=== PATIENT | female | born 1985 | race Caucasian/White ===

== ENCOUNTER → 2019-04-09 07:59 | Outpatient (CLI) | payer OTHER, SELFPAY ==
--- NOTE | 2019-04-09 08:01 | MR_ITS ---
MR elbow RT wo con CLINICAL INDICATION: Hyperextension injury of the elbow with pain ITS.REASON: right elbow injury ORDERING PHYSICIAN: Doyle Hansen MD PATIENT AGE: 33 years Comparison: 03/16/2019 TECHNIQUE: Routine multiplanar multiecho sequences are performed without contrast. FINDINGS: Study somewhat limited due to mild motion artifact. There is some mild bone marrow edema within the subcortical region of the coronoid process of the ulna. No obvious fracture or dislocation is evident. There is a medium-sized elbow joint effusion with displacement of the anterior and posterior fat pads. The bicipital tendon and triceps tendon appear intact. No gross ligamentous abnormalities are evident however, subtle ligamentous injuries may not be aspirated due to the motion. Subtle fractures also may not be identified due to the motion. On sagittal T1-weighted images there is a faint linear area of decreased signal intensity along the anterior aspect of the radial head. This is of questioned clinical significance. A nondisplaced fracture is a consideration. CT may be of further value if clinically desired. Motion artifact should be less with CT scan. A cutaneous edema is noted on the posterior aspect of the elbow medially IMPRESSION: 1. Medium sized elbow joint effusion. 2. Possible nondisplaced radial head fracture. There is a generous amount of motion artifact which does obscure fine detail. CT may be of further value clinically desired 3. Suspect a mild bone bruise of the coronoid process
== END ==
PROVIDERS: PCP Emergency Medicine; Visit Provider Orthopaedic Surgery
DX: S53.401A Unspecified sprain of right elbow, initial encounter (principal)
CPT/HCPCS: 73221

== ENCOUNTER → 2019-04-14 08:29 | Outpatient (CLI) | payer OTHER, SELFPAY ==
--- NOTE | 2019-04-14 08:30 | CT_ITS ---
CT elbow RT wo con INDICATION: Pain following injury, possible radial head fracture as seen on recent MRI ITS.REASON: evaluate for radial head fracture; stat read ORDERING PHYSICIAN: Doyle Hansen MD PATIENT AGE: 33 years COMPARISON: 04/09/2019 TECHNIQUE: Contrast Used: Oral Contrast: Axial images were obtained. Sagittal and coronal reformatted images are reviewed as well. All CT scans at the facility use one or more dose reduction, viz: automated exposure control, ma/kV adjustment per patient size (including targeted exams where dose is matched to indication, i.e. head), or iterative reconstruction technique. FINDINGS: Thin section axial images are obtained of the elbow. No evidence of fracture. Specifically, no evidence of radial head fracture. Small elbow joint effusion once again noted. IMPRESSION: No acute fracture apparent
== END ==
PROVIDERS: PCP Emergency Medicine; Visit Provider Orthopaedic Surgery
DX: S59.901A Unspecified injury of right elbow, initial encounter (principal)
CPT/HCPCS: 73200

== ENCOUNTER → 2019-06-10 17:59 | Outpatient (CLI) | payer OTHER, SELFPAY ==
[2019-06-10 18:52] LABS: Basophils % 0.5 % (0.1-2.0); Eosinophils # 0.2 K/mm3 (0.0-0.4); Eosinophils % 1.9 % (0.1-12.0); Hematocrit 48.8 % (37.0-47.0); Hemoglobin 15.2 g/dL (12.2-16.2); Lymphocytes # 3.3 K/mm3 (0.7-4.5); Lymphocytes % 38.8 % (10-50); Mean Corpuscular HGB Conc 31.2 g/dL (31.8-35.4); Mean Corpuscular Hemoglobin 29.5 pg (27.0-31.2); Mean Corpuscular Volume 94.8 fl (81-99); Mean Platelet Volume 9.3 fl (7.4-10.4); Monocytes # 0.4 K/mm3 (0.1-1.0); Monocytes % 4.3 % (1.7-9.3); Neutrophils # 4.6 K/mm3 (1.8-7.8); Neutrophils % 54.5 % (37.0-80.0); Platelet Count 214 K/mm3 (142-424); Red Blood Count 5.15 M/mm3 (4.20-5.40); Red Cell Distribution Width 12.8 % (11.5-17.5); White Blood Count 8.4 K/mm3 (4.8-10.8)
[2019-06-10 19:04] LABS: Alanine Aminotransferase 62 U/L (12-78); Albumin Level 4.3 gm/dL (3.4-5.0); Alkaline Phosphatase 100 U/L (46-116); Anion Gap 13.8 mEq/L (5-15); Aspartate Amino Transferase 54 U/L (15-37); Bilirubin,Total 0.3 mg/dL (0.2-1.0); Blood Urea Nitrogen 5 mg/dL (7-18); Calcium 9.1 mg/dL (8.5-10.1); Carbon Dioxide 26 mmol/L (21.0-32.0); Chloride 103 mmol/L (98-107); Chol/HDL Ratio 4.9 (1-3.5); Cholesterol 199 mg/dL (140-200); Creatinine,Serum 0.76 mg/dL (0.55-1.02); Estimated Glomerular Filt Rate 88 ml/min (>60); GFR (African American) 107 ML/MIN (>60); Globulin 4.3 gm/dl (1.3-3.2); Glucose 77 mg/dL (74-106); HDL Cholesterol 41 mg/dL (29-89); LDL Cholesterol 133 mg/dL (0-130); Potassium 3.8 mmoL/L (3.5-5.1); Sodium 139 mmol/L (136-145); T4 (Thyroxine) 8.9 ug/dl (4.7-13.3); Thyroid Stimulating Hormone 31.79 uIU/ml (0.358-3.740); Total Protein,Serum 8.6 gm/dL (6.4-8.2); Triglycerides 127 mg/dL (30-200); VLDL Cholesterol 25 mg/dL (0-40)
[2019-06-12 08:13] LABS: Hep A Ab, IgM Negative (Negative); Hepatitis B Core Antibody IgM Negative (Negative); Hepatitis B Surface Antigen Negative (Negative)
[2019-06-12 12:27] LABS: Hepatitis C Antibody >11.0 s/co ratio (0.0-0.9); Vitamin D 25 Hydroxy 28.2 ng/mL (30.0-100.0)
== END ==
PROVIDERS: Visit Provider Nurse Practitioner Family
DX: M79.89 Other specified soft tissue disorders (principal)
CPT/HCPCS: 80053; 80061; 80074; 82652; 84436; 84443; 85025

== ENCOUNTER → 2019-06-21 14:17 | Outpatient (CLI) | payer OTHER, SELFPAY | PROVIDERS: PCP Emergency Medicine; Visit Provider Urology | DX: R00.2 Palpitations (principal) | CPT/HCPCS: 93225; 93226 ==

== ENCOUNTER → 2019-06-29 09:29 | Outpatient (CLI) | payer OTHER, SELFPAY ==
--- NOTE | 2019-06-29 09:31 | CA_ITS ---
[facility] RADIOLOGICAL CONSULTATION Patient Name : DELIA GATICA X-RAY # : [id number] Physician: ИВАН GRIFFITHS AGE: 33Y : 1985 00:00:00 ( F ) Exam : CA ECHO DOPPLER COMPLETE ACC # : [id number] Study Date : 06/29/2019 09:31:05 Patient Class : O FINAL REPORT CLINICAL DATA: FINDINGS: TRANSCRIBED REPORT EXAM: Comprehensive 2D, Doppler, and color-flow Echocardiogram Rolling Up Machine Operator: Izzy Cooper RT(R) Ht: 5 ft 6 in Wt: 242lbs BSA: 2.17 BP: 138/75 mmHg Indications: Smoking, palpitations, Edema, SOB, hepatitis C, former IV drug user 2D Dimensions Aortic Root 2.90 cm F: 2.7 - 3.3 Left Atrium 3.50 cm F: 2.7 - 3.8 LVOT 2.00 cm (M/F) 1.5-2.5 M-Mode Dimensions RVDd 2.53 cm (0.9-2.6) LVDd 5.25 cm (3.5-5.7) LVDs 3.94 cm (3.5-5.7) IVSd 1.03 cm (0.6-1.1) PWd 0.78 cm (0.6-1.1) EF (Teich) 49.00% FS 25.00% EDV (Teich) 132.40 mL ESV (Teich) 67.50 mL LV Diastology E/A Ratio 1.47 Mitral Valve MV A Velocity 58.00 (40-130 cm/s) Electronically signed by : IMPRESSION: Dictated by at Transcribed by at
== END ==
PROVIDERS: PCP Emergency Medicine; Visit Provider Internal Medicine
DX: R00.2 Palpitations (principal); R60.9 Edema, unspecified; B19.20 Unspecified viral hepatitis C without hepatic coma
CPT/HCPCS: 93306

== ENCOUNTER → 2019-07-19 15:27 | Outpatient (CLI) | payer OTHER, SELFPAY ==
--- NOTE | 2019-07-19 15:30 | US_ITS ---
PROCEDURE: US THYROID CLINICAL INDICATION: hypothyroid Hypothyroidism COMPARISON: No exams were available for comparison FINDINGS: Right lobe: 4.7 x 2.3 x 2.3 cm. There is heterogeneous echogenicity. There is a 15 x 10 mm solid-appearing nodule in the lower pole posteriorly well-circumscribed with some increased echogenicity and no obvious internal calcifications. This is a T rads level 3 nodule for which six-month follow-up is suggested. Left lobe: 4.9 x 2.1 x 2.4 cm. There is a 17 x 8 mm area of ill-defined decreased echogenicity mainly manifested by coarse calcification with prominent posterior acoustical shadowing measuring approximately 1 cm. This nodule is difficult to evaluate due to the coarse calcification. Isthmus: Unremarkable Additional findings: IMPRESSION: Enlarged thyroid gland with heterogeneous echogenicity and bilateral thyroid nodules. Recommend six-month follow-up Dictated by: Ashutosh Vaughan MD 07/19/2019 16:45 Electronically signed by Ashutosh Vaughan MD in [place] 07/19/2019 16:45
== END ==
PROVIDERS: PCP Emergency Medicine; Visit Provider Otolaryngology
DX: E03.9 Hypothyroidism, unspecified (principal)
CPT/HCPCS: 76536

== ENCOUNTER 2019-08-10 13:40 | Outpatient (RCR) | payer OTHER, SELFPAY | END 2019-08-10 14:15 | disposition home or self-care (01) | LOC: OT 13:40 | PROVIDERS: Visit Provider Orthopaedic Surgery | DX: G56.01 Carpal tunnel syndrome, right upper limb (principal) | CPT/HCPCS: 97763 ==

== ENCOUNTER → 2019-10-13 12:51 | Outpatient (CLI) | payer OTHER, SELFPAY ==
--- NOTE | 2019-10-13 12:51 | US_ITS ---
PROCEDURE: US THYROID CLINICAL INDICATION: hypothyroid COMPARISON: US THYROID from 07/19/2019 FINDINGS: Right lobe: 5.7 x 2.2 x 2 cm. There is diffuse heterogeneous echogenicity. A 1 cm nodule is present in the mid polar region on the right unchanged isoechoic. Left lobe: 5.5 x 2.2 x 2 cm. Diffuse nodular heterogeneous echogenicity. 1 cm heterogeneous nodule with central calcification unchanged in the lower pole. Isthmus: Heterogeneous and enlarged Additional findings: IMPRESSION: Overall no change multinodular goiter. Continued six-month follow-up recommended. Dictated by: Ashutosh Vaughan MD 10/13/2019 16:19 Electronically signed by Ashutosh Vaughan MD in [place] 10/13/2019 16:19
== END ==
PROVIDERS: PCP Emergency Medicine; Visit Provider Otolaryngology
DX: E03.9 Hypothyroidism, unspecified (principal); E04.1 Nontoxic single thyroid nodule
CPT/HCPCS: 76536

== ENCOUNTER → 2020-05-18 15:13 | Outpatient (CLI) | payer OTHER, SELFPAY ==
--- NOTE | 2020-05-18 15:13 | US_ITS ---
PROCEDURE: US THYROID CLINICAL INDICATION: hypothyroid Six-month follow-up the nodular goiter COMPARISON: US US THYROID from 07/19/2019 US US THYROID from 10/13/2019 FINDINGS: The right lobe is 5.5 x 2.2 x 1.9 cm in the left lobe is 5.2 x 2.1 x 2.1 cm. The isthmus is thickened at 6 mm. There remains diffuse heterogeneous echogenicity of the thyroid gland with a multinodular configuration. In the mid polar region on the right there is a 10 x 8 mm hypoechoic nodule unchanged. In the lower pole there is a 12 x 10 mm hypoechoic nodule unchanged. On the left side there is a 6 mm nodule in the mid polar region with some coarse calcification unchanged. In the lower pole on the left there is a 12 mm isodense slightly hypoechoic nodule probably unchanged given difference in scanning technique IMPRESSION: No significant change multinodular goiter. Dictated by: Ashutosh Vaughan MD 05/18/2020 17:53 Ashutosh Vaughan MD in [place] 05/18/2020 17:53
== END ==
PROVIDERS: PCP Emergency Medicine; Visit Provider Otolaryngology
DX: E03.9 Hypothyroidism, unspecified (principal); E04.1 Nontoxic single thyroid nodule
CPT/HCPCS: 76536

== ENCOUNTER 2020-08-22 12:14 | Emergency (ER) | payer OTHER, SELFPAY ==
[2020-08-22 12:29] VITALS: BP 121/76; PULSE 86; RESP 18; TEMP 36.6; O2SAT 98; BMI 37.4
--- NOTE | 2020-08-22 12:36 | HMH.EDUTC ---
[facility] [place] Disposition Clinical Impression: Viral syndrome Sinusitis Qualifiers: Sinusitis location: unspecified location Chronicity: acute Recurrence: non-recurrent Qualified Code(s): J01.90 - Acute sinusitis, unspecified Disposition: Home, Self-Care Condition on Discharge: Good Instructions: DI for Sinusitis, Preventing the Spread of Coronavirus Discharge Instructions Additional Instructions: Drink plenty of fluids. Take tylenol for pain or fever. Return if you begin to have difficulty breathing. Follow up with your regular doctor. GO TO THE ER FOR ANY WORSENING SYMPTOMS Prescriptions: Brompheniramine/Pseudoephed/Dm [Bromfed Dm Cough Syrup] 5 ml PO Q6HP PRN #240 syrup PRN Reason: Cough Transmission Status: Pending to [facility] Azithromycin [Z-Jason 250mg Tab*] 250 mg PO UD DOSE PK #6 tab Transmission Status: Pending to [facility] Referrals: Richard Yeboah MD [Primary Care Provider] - Time of Disposition: 12:51 Medical Decision Making - Medical Records Medical records reviewed: No: I reviewed the patient's medical records. - Nash Inquiry Pt receiving controlled substance: No Vital Signs: 08/22/20 12:29 Temperature 97.9 F Temperature Source Oral Pulse Rate [Radial] 86 Respiratory Rate 18 Blood Pressure [Right Arm] 121/76 Blood Pressure Mean [Right Arm] 91 Blood Pressure Source [Right Arm] Automatic Cuff Blood Pressure Position [Right Arm] Sitting 02 Sat by Pulse Oximetry 98 Oxygen Delivery Method Room Air Orders (Tests/Meds): ORDERS Category Date Time Status Covid-19 Nasal PCR Sendout [facility] Lab 08/22/20 12:26 Received [facility] [place] HPI - General Stated complaint: cough,sinus Time Seen by Provider: 08/22/20 12:36 Mode of Arrival: Ambulatory Source of Information: Patient Limitations: No Limitations Description of Symptoms (Recalled from Triage Doc. by RN): covid test, congestion, cough HEENT Symptoms (Recalled from RN notes): Yes Resp Symptoms (Recalled from RN notes): No Skin Symptoms (Recalled from RN notes): No MS Symptoms (Recalled from RN notes): No Functional Status (Recalled from RN notes): wnl - History of Present Illness Provider Complaint: She has had sinus congestion for the past week. She may have been exposed to covid also. - Related Data Home Medications Medication Instructions Recorded Confirmed buprenorphine 8 mg-naloxone 2 mg 1.5 film BUCCAL DAILY each 03/18/19 05/22/20 sublingual film glecaprevir 100 mg-pibrentasvir 40 tab PO 05/22/20 05/22/20 mg tablet Previous Rx's Medication Instructions Recorded cholecalciferol (vitamin D3) 25 1,000 unit PO DAILY #90 cap 06/16/19 mcg (1,000 unit) capsule ergocalciferol (vitamin D2) 1,250 50,000 unit PO QWEEK #14 cap 11/24/19 mcg (50,000 unit) capsule levothyroxine 150 mcg capsule 150 mcg PO DAILY #90 cap 12/10/19 methylprednisolone 4 mg tablets in 4 mg PO PER PKG DIR 6 Days #21 tab 01/17/20 a dose pack tizanidine 4 mg tablet 4 mg PO Q8H #30 tab 01/17/20 Azithromycin [Z-Jason 250mg Tab*] 250 mg PO UD DOSE PK #6 tab 08/22/20 Brompheniramine/Pseudoephed/Dm 5 ml PO Q6HP PRN #240 syrup 08/22/20 [Bromfed Dm Cough Syrup] Allergies Allergy/AdvReac Type Severity Reaction Status Date / Time No Known Allergies Allergy Verified 05/22/20 13:09 - Worker's Comp Is this a Worker's Comp case?: No [facility] History - Hepatitis A Screen Drug use history?: Yes High risk sexual behaviors?: No History of sexually transmitted infection?: No Currently employed?: No Childcare worker?: No Do you have indoor plumbing?: Yes Do you have electricity?: Yes Attestation statement:: This patient has been screened for Hepatitis A risk factors. I have reviewed the patient's past medical history: Yes Medical History: Reports:: Anxiety Other Medical History: Reports: Thyroid Disease, Other Comment: hep c Other Surgeries: Yes: Appendectomy, Cholecystectomy, , H
[2020-08-22 13:00] VITALS: BP 121/74; PULSE 86; RESP 18; TEMP 36.6; O2SAT 98
[2020-08-24 06:24] LABS: Covid-19 Nasal PCR Sendout Lex NOT DETECTED
== END 2020-08-22 12:59 | disposition home or self-care (01) ==
PROVIDERS: Emergency Provider Nurse Practitioner Family; PCP Emergency Medicine
DX: Z20.828 Contact with and (suspected) exposure to other viral communicable diseases (principal); J01.90 Acute sinusitis, unspecified; B34.9 Viral infection, unspecified; F41.9 Anxiety disorder, unspecified; F17.210 Nicotine dependence, cigarettes, uncomplicated
CPT/HCPCS: 99201; U0004

== ENCOUNTER 2020-11-12 12:10 | Emergency (ER) | payer OTHER, SELFPAY ==
[2020-11-12 12:15] VITALS: BP 143/86; PULSE 72; RESP 19; TEMP 36.8; O2SAT 98; BMI 38.7
--- NOTE | 2020-11-12 12:40 | HMH.EDUTC ---
[facility] [place] Clinical Impression: Migraine Qualifiers: Migraine type: unspecified Status migrainosus presence: without status migrainosus Intractability: not intractable Qualified Code(s): G43.909 - Migraine, unspecified, not intractable, without status migrainosus Disposition: Home, Self-Care Condition on Discharge: Good Instructions: Migraine -- Adult, DI for Migraine Additional Instructions: Go Straight home and lay down and sleep off remaining of your Migraine *Return if needed Follow up with Family Doctor for further evaluation and treatment Straight to ER if any life threatening symptoms Referrals: Richard Yeboah MD [Primary Care Provider] - As needed Forms: Work/School Release Time of Disposition: 13:28 Medical Decision Making - Nash Inquiry Pt receiving controlled substance: No Nash was queried for this patient: No Vital Signs: 11/12/20 12:15 Temperature 98.2 F Temperature Source Oral Pulse Rate [Right Brachial] 72 Respiratory Rate 19 Blood Pressure [Right Arm] 143/86 H Blood Pressure Mean [Right Arm] 105 Blood Pressure Source [Right Arm] Automatic Cuff Blood Pressure Position [Right Arm] Sitting 02 Sat by Pulse Oximetry 98 Oxygen Delivery Method Room Air Orders (Tests/Meds): ED MEDICATIONS Discontinued Medications Generic Name Dose Route Start Last Admin Trade Name Freq PRN Reason Stop Dose Admin Diphenhydramine HCl 25 mg 11/12/20 12:48 11/12/20 12:55 Diphenhydramine 25mg Capsule PO 11/12/20 12:49 25 mg ONCE ONE Administration Ketorolac Tromethamine 60 mg 11/12/20 12:43 11/12/20 12:55 Ketorolac 60mg/2ml Vial IM 11/12/20 12:44 60 mg ONCE ONE Administration Methylprednisolone Sodium Succinate 125 mg 11/12/20 12:48 11/12/20 12:55 Methylprednisolone Sod Succ 125mg Vial IM 11/12/20 12:49 125 mg ONCE ONE Administration Metoclopramide HCl 10 mg 11/12/20 12:43 11/12/20 12:55 Metoclopramide 10mg Tablet PO 11/12/20 12:44 10 mg ONCE ONE Administration ORDERS Category Date Time Status Covid-19 Nasal PCR ([facility]) Routine Lab 11/12/20 12:23 Received Medical Decision Narrative: Patient reports tubal, Medication discussed with pharmacy and elected to add SoluMedrol due to recurrent migraine headache Patient states that migraine is almost gone and much better no longer having nausea [facility] [place] - General Stated complaint: headache for 4 days, nausea Time Seen by Provider: 11/12/20 12:40 Mode of Arrival: Ambulatory Source of Information: Patient Limitations: No Limitations Description of Symptoms (Recalled from Triage Doc. by RN): PATIENT C/O HEADACHE, FATIGUE, AND NAUSEA X 4 DAYS HEENT Symptoms (Recalled from RN notes): Yes Resp Symptoms (Recalled from RN notes): No Skin Symptoms (Recalled from RN notes): No MS Symptoms (Recalled from RN notes): No Functional Status (Recalled from RN notes): WNL - History of Present Illness Provider Complaint: Patient states that she has a history of Migraine headaches States that she has had a migraine for about 4 days State that she went to [facility] and they give her a shot for her migraine and it helped but then it came back State that she is also having some body aches and chills and wants to get tested for COVID Denies worse headache of her life States that several times in the past she has had recurrent migraines and had to seek treatment - Related Data Home Medications Medication Instructions Recorded Confirmed buprenorphine 8 mg-naloxone 2 mg 1.5 film BUCCAL DAILY each 03/18/19 11/12/20 sublingual film Allergies Allergy/AdvReac Type Severity Reaction Status Date / Time No Known Allergies Allergy Verified 05/22/20 13:09 - Worker's Comp Is this a Worker's Comp case?: No [facility] History - Hepatitis A Screen Drug use history?: No High risk sexual behaviors?: No History of sexually transmitted infection?: No Currently employed?: No Childcare worker?: No Do you have
[2020-11-12 13:32] VITALS: BP 143/86; PULSE 72; RESP 19; TEMP 36.8; O2SAT 98
== END 2020-11-12 13:37 | disposition home or self-care (01) ==
PROVIDERS: Emergency Provider Nurse Practitioner; PCP Emergency Medicine
DX: Z20.822 Contact with and (suspected) exposure to COVID-19 (principal); G43.909 Migraine, unspecified, not intractable, without status migrainosus; F41.9 Anxiety disorder, unspecified; F17.210 Nicotine dependence, cigarettes, uncomplicated
CPT/HCPCS: 96372; 99202; G0463; U0003

== ENCOUNTER → 2021-01-03 13:16 | Outpatient (CLI) | payer OTHER, SELFPAY | PROVIDERS: PCP Physician Assistant; Referring Provider Physician Assistant; Visit Provider Emergency Medicine | DX: G47.33 Obstructive sleep apnea (adult) (pediatric) (principal); R51.9 Headache, unspecified; R06.83 Snoring | CPT/HCPCS: 95806 ==

== ENCOUNTER → 2021-02-06 13:56 | Outpatient (CLI) | payer OTHER, SELFPAY ==
--- NOTE | 2021-02-06 13:59 | XR_ITS ---
PROCEDURE: XR CERVICAL SPINE 4V CLINICAL INDICATION: neck pain, headaches COMPARISON: No exams were available for comparison FINDINGS: Alignment: Normal alignment. Bony structures: No fracture or dislocation. No lytic or blastic change. Disc spaces: No significant degenerative change. The disc spaces are preserved. Additional findings: The foramina are widely patent. No evidence of cervical rib. Incidental note is made styloid processes on both sides which are not ossified proximally. On the left posterior oblique view there is some soft tissue calcification anterior to the trachea and could be within the thyroid gland or could be vascular. IMPRESSION: Negative cervical spine Incidental findings as described Dictated by: Ashutosh Vaughan MD 02/06/2021 14:24 Ashutosh Vaughan MD in [place] 02/06/2021 14:24
== END ==
PROVIDERS: PCP Physician Assistant; Visit Provider Physician Assistant
DX: R51.9 Headache, unspecified (principal)
CPT/HCPCS: 72050

== ENCOUNTER → 2021-02-07 15:26 | Outpatient (CLI) | payer OTHER, SELFPAY | PROVIDERS: Visit Provider Physician Assistant | DX: Z20.822 Contact with and (suspected) exposure to COVID-19 (principal) | CPT/HCPCS: U0003 ==

== ENCOUNTER → 2021-02-27 19:57 | Outpatient (CLI) | payer OTHER, SELFPAY | PROVIDERS: PCP Physician Assistant; Visit Provider Physician Assistant | DX: G47.33 Obstructive sleep apnea (adult) (pediatric) (principal); R06.83 Snoring; R51.9 Headache, unspecified; E66.9 Obesity, unspecified | CPT/HCPCS: 95810 ==

== ENCOUNTER → 2021-06-28 09:48 | Outpatient (CLI) | payer OTHER, SELFPAY | LOC: RT 09:48 | PROVIDERS: PCP Physician Assistant; Visit Provider Specialist | DX: G47.33 Obstructive sleep apnea (adult) (pediatric) (principal) | CPT/HCPCS: 94060; 94640 ==

== ENCOUNTER 2021-07-24 13:16 | Emergency (ER) | payer OTHER, SELFPAY ==
[2021-07-24 13:43] VITALS: BP 132/87; PULSE 87; RESP 18; TEMP 36.9; O2SAT 95; BMI 41.5
--- NOTE | 2021-07-24 13:48 | HMH.EDUTC ---
[facility] [place] Clinical Impression: Viral syndrome Acute bronchitis Qualifiers: Bronchitis organism: unspecified organism Qualified Code(s): J20.9 - Acute bronchitis, unspecified Disposition: Home, Self-Care Condition on Discharge: Good Instructions: DI for Acute Bronchitis, DI for Viral Syndrome, DI for COVID-19 (Suspected or Confirmed ), Preventing the Spread of Coronavirus Discharge Instructions Additional Instructions: Drink plenty of fluids. Take tylenol or ibuprofen for pain or fever. Take the medications as directed. Follow up with your regular doctor. GO TO THE ER FOR ANY WORSENING SYMPTOMS Quarantine until you know the results of your covid-19 test. If it is positive, the health department should call you and give you further instructions about your length of Quarantine and other things. Notify your school or workplace of your results and follow their instructions regarding return to work/school. Prescriptions: Benzonatate [Benzonatate 100mg cap] 100 mg PO TIDP PRN #30 cap PRN Reason: Cough Transmission Status: Received by [facility] methylPREDNISolone [Medrol] 4 mg PO DIRECTED 6 Days #21 packet Transmission Status: Received by [facility] Azithromycin [Z-Jason 250mg Tab*] 250 mg PO UD DOSE PK #6 tab Transmission Status: Received by [facility] Referrals: Richard Yeboah MD [Primary Care Provider] - Time of Disposition: 14:22 Medical Decision Making - Medical Records Medical records reviewed: No: I reviewed the patient's medical records. - Nash Inquiry Pt receiving controlled substance: No Vital Signs: 07/24/21 13:43 07/24/21 14:30 Temperature 98.4 F 98.4 F Temperature Source Oral Pulse Rate 87 Pulse Rate [Left] 87 Respiratory Rate 18 18 Blood Pressure 132/87 Blood Pressure [Right Arm] 132/87 Blood Pressure Mean [Right Arm] 102 02 Sat by Pulse Oximetry 95 - Lab Data Lab results reviewed: Yes: I reviewed the patient's lab results. [facility] [place] - General Stated complaint: fever/chills, sore throat, congestion, cough Time Seen by Provider: 07/24/21 13:48 Mode of Arrival: Ambulatory Source of Information: Patient Limitations: No Limitations Description of Symptoms (Recalled from Triage Doc. by RN): pt c/o congestion, cough, light headedness, dizziness and loss of taste. ongoing x2 weeks. HEENT Symptoms (Recalled from RN notes): Yes (congestion, loss of taste, light headed and dizziness) Resp Symptoms (Recalled from RN notes): Yes (cough) Skin Symptoms (Recalled from RN notes): No MS Symptoms (Recalled from RN notes): No Functional Status (Recalled from RN notes): na - History of Present Illness Provider Complaint: She states that for the past 5 days approx, she has had a cough, chest congestion, sinus congestion and she has felt bad. - Related Data Home Medications Medication Instructions Recorded Confirmed buprenorphine 8 mg-naloxone 2 mg 2 tab SUBLINGUAL DAILY tab 03/21/21 06/20/21 sublingual tablet levothyroxine 150 mcg capsule 150 mcg PO DAILY 03/21/21 06/20/21 Previous Rx's Medication Instructions Recorded Azithromycin [Z-Jason 250mg Tab*] 250 mg PO UD DOSE PK #6 tab 07/24/21 Benzonatate [Benzonatate 100mg 100 mg PO TIDP PRN #30 cap 07/24/21 cap] methylPREDNISolone [Medrol] 4 mg PO DIRECTED 6 Days #21 07/24/21 packet Allergies Allergy/AdvReac Type Severity Reaction Status Date / Time No Known Allergies Allergy Verified 06/20/21 14:14 - Worker's Comp Is this a Worker's Comp case?: No [facility] History - Hepatitis A Screen Drug use history?: No High risk sexual behaviors?: No History of sexually transmitted infection?: No Currently employed?: No Childcare worker?: No Do you have indoor plumbing?: Yes Do you have electricity?: Yes Attestation statement:: This patient has been screened for Hepatitis A risk factors. I have reviewed the patient's pa
[2021-07-24 14:30] VITALS: BP 132/87; PULSE 87; RESP 18; TEMP 36.9
== END 2021-07-24 14:32 | disposition home or self-care (01) ==
PROVIDERS: Emergency Provider Nurse Practitioner Family; PCP Emergency Medicine
DX: U07.1 COVID-19 (principal); J20.9 Acute bronchitis, unspecified; B34.9 Viral infection, unspecified; F41.8 Other specified anxiety disorders
CPT/HCPCS: 87880; 99202; C9803; G0463; U0003; U0005

== ENCOUNTER 2022-03-18 12:33 | Emergency (ER) | payer OTHER, SELFPAY ==
[2022-03-18 12:51] VITALS: BP 121/82; PULSE 78; RESP 17; TEMP 36.7; O2SAT 98; BMI 33.3
--- NOTE | 2022-03-18 13:04 | HMH.EDUTC ---
[facility] [place] Disposition Clinical Impression: Exposure to COVID-19 virus Disposition: Home, Self-Care Condition on Discharge: Good Instructions: DI for COVID-19 (Suspected or Confirmed ), Preventing the Spread of Coronavirus Discharge Instructions Additional Instructions: *Monitor Temp, Over the counter Motrin or Tylenol as directed/as needed Tylenol every 4 hours and Motrin every 6 hours (as long as your family doctor has told you that you can take it) for fever or pain. and straight to ER if unable to lower temp less than 101.0 after medication given *Warm salt water gargles may help to soothe the throat *Throat Lozenges *Warm fluids like tea with honey may help to soothe the throat *Sleep elevated *Humidifier/Vaporizer Follow up IMMEDIATELY for new or worsening symptoms or no Noticeable improvement over the next 48-72 hours. 911 for difficulty breathing or swallowing You were tested for today for COVID19 your test result should be back in the next 24-48 hours, you may check your results on the [facility] [employer] [facility] Portal for your results Make sure to take your Vitamins Vit. C Vit D and Zinc if you can take them Referrals: Provider,Referral, [Primary Care Provider] - Forms: Work/School Release Time of Disposition: 13:09 Medical Decision Making - Nash Inquiry Pt receiving controlled substance: No Nash was queried for this patient: No Vital Signs: 03/18/22 12:51 Temperature 98.0 F Temperature Source Oral Pulse Rate [Left] 78 Respiratory Rate 17 Blood Pressure [Right Arm] 121/82 Blood Pressure Mean [Right Arm] 95 02 Sat by Pulse Oximetry 98 Orders (Tests/Meds): ORDERS Category Date Time Status Covid-19 Nasal PCR ([facility]) Routine Lab 03/18/22 12:50 Received [facility] [place] HPI - General Stated complaint: covid test Time Seen by Provider: 03/18/22 13:04 Description of Symptoms (Recalled from Triage Doc. by RN): patient comes in for covid test. at home covid test was positive. patient symptoms include fever, cough, runny nose HEENT Symptoms (Recalled from RN notes): Yes Resp Symptoms (Recalled from RN notes): Yes Skin Symptoms (Recalled from RN notes): No MS Symptoms (Recalled from RN notes): No Functional Status (Recalled from RN notes): n/a - History of Present Illness Provider Complaint: Patient states that she was recenlty around her daughter that was positive for COVID States that now she is having nasal congestion, mild cough and low grade fever States that she took an at home test and it was positive so she came in to get tested - Related Data Home Medications Medication Instructions Recorded Confirmed buprenorphine 8 mg-naloxone 2 mg 2 tab SUBLINGUAL DAILY tab 03/21/21 03/18/22 sublingual tablet levothyroxine 150 mcg capsule 150 mcg PO DAILY 03/21/21 03/18/22 Previous Rx's Medication Instructions Recorded phentermine 37.5 mg tablet 37.5 mg PO DAILY #30 tab 09/04/21 Allergies Allergy/AdvReac Type Severity Reaction Status Date / Time No Known Allergies Allergy Verified 03/18/22 12:56 - Worker's Comp Is this a Worker's Comp case?: No [facility] History - Hepatitis A Screen Attestation statement:: This patient has been screened for Hepatitis A risk factors. I have reviewed the patient's past medical history: Yes Medical History: Reports:: Anxiety, Depression, Migraine Other Medical History: Reports: Thyroid Disease, Other Comment: hep c Other Surgeries: Yes: Appendectomy, Cholecystectomy, Colonoscopy, , Hernia Repair, Tubal Ligation, Other Amputation: No Fractures: No Comment: peraneal area - Social History Smoking Status: Current every day smoker Tobacco Type: cigarettes # Packs/Day (cigarettes): 1 #Yrs smoked (if former smoker): 20 Alcohol Intake: never Substance Use Type: former substance user, heroin Occupational Status: unemployed Housing: house Household Members: family - Psychiatric History Pschychiatric History:: Reports:: Anxiety, Depression Fam
[2022-03-18 13:14] VITALS: BP 121/82; PULSE 78; RESP 17; TEMP 36.7
== END 2022-03-18 13:15 | disposition home or self-care (01) ==
PROVIDERS: Emergency Provider Nurse Practitioner
DX: U07.1 COVID-19 (principal)
CPT/HCPCS: 99212; C9803; G0463; U0003; U0005

== ENCOUNTER 2023-06-12 11:36 | Emergency (ER) | payer OTHER, SELFPAY ==
[2023-06-12 11:45] VITALS: BP 156/75; PULSE 79; RESP 20; TEMP 36.8; O2SAT 99; BMI 40.3
--- NOTE | 2023-06-12 11:51 | CA_ITS ---
FINAL REPORT TECHNIQUE: Color Doppler, duplex Doppler and compression sonography of the right lower extremity venous system was performed. CLINICAL HISTORY: REDNESS/SWELLING TO RIGHT CALF FINDINGS: There is no evidence of deep venous thrombosis from the level of the groin to the calf. The veins are patent and compressible. IMPRESSION: No evidence of deep venous thrombosis right lower extremity. Reviewed, Interpreted and Dictated by Nick Mckeon III, MD Transcribed by Neena Manuel Authenticated and [facility]
--- NOTE | 2023-06-12 12:07 | EXP.UTC ---
Discharge Plan Disposition Patient Disposition: Home, Self-Care Condition: Good Prescriptions Prescriptions: New cephalexin 500 mg capsule 500 mg PO QID Qty: 40 0RF No Action levothyroxine 150 mcg capsule 150 mcg PO DAILY buprenorphine-naloxone 8-2 mg tablet, sublingual 2 tab SUBLINGUAL DAILY phentermine [Adipex-P] 37.5 mg tablet 37.5 mg PO DAILY Qty: 30 0RF Rx Instructions: must administer 30 minutes before or 1-2 hours after breakfast Referrals Follow up/Referrals: Richard Yeboah MD [Primary Care Provider] - See instructions Activity Restrictions/Add. Instructions Additional Instructions/Restrictions: *Start antibiotic(s) immediately and be sure to take as ordered for the FULL length of time although you may be feeling better or start to see improvement in the next 24-48 hours *Monitor closely. Outlined redness so that you can monitor easier. Follow up immediately for new or worsening symptoms including but not limited to redness, swelling, streaking from site fever or chills. *Warm compress 15 minutes 3-4 times day *Never squeeze or pop these on your own. Seek immediate medical attention next time this occurs *Monitor Temp. Tylenol every 4 hours as needed and ibuprofen every 6 hours as needed (as long as your primary care doctor has told you that it is ok to take both. For fever, aches, pain. ER if no less that 101 despite Tylenol and ibuprofen ?Follow up with your family doctor/primary care physician in the next 48-72 hours if no improvement Clinical Impressions Clinical Impression: Cellulitis Qualifiers: Site of cellulitis: extremity Site of cellulitis of extremity: lower extremity Laterality: right Qualified Code(s): L03.115 - Cellulitis of right lower limb Stand Alone Forms Stand Alone Forms: Work/School Release Instructions Patient Instructions: Cellulitis, Cephalexin Discharge ED Provider: Jodi Jennings [facility] General Stated complaint: R leg swollen Mode of Arrival: Ambulatory Source of Information: Patient Limitations: No Limitations Time Seen by Provider: 06/12/23 12:07 Description of Symptoms (Recalled from Triage Doc. by RN): PATIENT C/O REDNESS, SWELLING, AND PAIN TO RIGHT CALF AREA THAT STARTED THIS MORNING HEENT Symptoms (Recalled from RN notes): No Resp Symptoms (Recalled from RN notes): No Skin Symptoms (Recalled from RN notes): No MS Symptoms (Recalled from RN notes): Yes Functional Status (Recalled from RN notes): WNL History of Present Illness Provider Complaint: Patient states that she was having some pain and soreness in her right calf area last night and when she woke up this morning she had some redness and swelling in her right calf area States that she hasnt hurt it in anyway that she knows of but it is sore to the touch and hurts when she touches it Related Data Home Medications Medication Instructions Recorded Confirmed buprenorphine 8 mg-naloxone 2 mg 2 tab SUBLINGUAL DAILY addiction 03/21/21 06/12/23 sublingual tablet levothyroxine 150 mcg capsule 150 mcg PO DAILY thyroid 03/21/21 03/18/22 Previous Rx's Medication Instructions Recorded phentermine 37.5 mg tablet 37.5 mg PO DAILY #30 tabs 09/04/21 (Adipex-P) cephalexin 500 mg capsule 500 mg PO QID #40 caps 06/12/23 Allergies Allergy/AdvReac Type Severity Reaction Status Date / Time No Known Allergies Allergy Verified 03/18/22 12:56 Worker's Comp Is this a Worker's Comp case?: No PFSH [facility] Disclaimer: The information contained in this section may have been updated after the patient was seen, as this information can be updated by other users. Medical History (Updated 06/12/23 @ 12:23 by Jodi Jennings APRN) Edema Hepatitis C Hypothyroidism Palpitations Tobacco dependence syndrome Social History Smoking Status: Current every day smoker tobacco type: cigarettes packs per day: 1 second hand exposure: Yes alcohol intake: never substance use ty
[2023-06-12 12:32] VITALS: BP 156/75; PULSE 79; RESP 20; TEMP 36.8; O2SAT 99
== END 2023-06-12 12:38 | disposition home or self-care (01) ==
PROVIDERS: Emergency Provider Nurse Practitioner; PCP Emergency Medicine
DX: L03.115 Cellulitis of right lower limb (principal); F17.210 Nicotine dependence, cigarettes, uncomplicated; E03.9 Hypothyroidism, unspecified
CPT/HCPCS: 93971; 99212; 99214; G0463

== ENCOUNTER 2024-02-18 13:09 | Outpatient (CLI) | payer OTHER, SELFPAY | END 2024-02-18 23:59 | disposition home or self-care (01) | LOC: LAB 13:18 | PROVIDERS: PCP Family Medicine; Visit Provider Nurse Practitioner | DX: E03.9 Hypothyroidism, unspecified (principal) | CPT/HCPCS: 36415; 84443 ==

== ENCOUNTER 2024-02-20 12:48 | Outpatient (CLI) | payer OTHER, SELFPAY ==
[2024-02-20 14:15] LABS: Basophils # 0.1 K/mm3 (0-0.2); Basophils % 1.1 % (0.1-2.0); Eosinophils # 0.2 K/mm3 (0.0-0.4); Eosinophils % 3.1 % (0.1-12.0); Hematocrit 46.2 % (37.0-47.0); Hemoglobin 14.9 g/dL (12.2-16.2); Lymphocytes # 2.6 K/mm3 (0.7-4.5); Lymphocytes % 42.1 % (10-50); Mean Corpuscular HGB Conc 32.1 g/dL (31.8-35.4); Mean Corpuscular Hemoglobin 30.4 pg (27.0-31.2); Mean Corpuscular Volume 94.7 fl (81-99); Mean Platelet Volume 7.9 fl (7.4-10.4); Monocytes # 0.3 K/mm3 (0.1-1.0); Monocytes % 5.2 % (1.7-9.3); Neutrophils % 48.6 % (37.0-80.0); Platelet Count 201 K/mm3 (142-424); Red Blood Count 4.89 M/mm3 (4.20-5.40); Red Cell Distribution Width 13.6 % (11.5-17.5); White Blood Count 6.1 K/mm3 (4.8-10.8)
[2024-02-20 14:17] LABS: Alanine Aminotransferase 20 U/L (12-78); Albumin Level 4.3 g/dl (3.5-5.0); Albumin/Globulin Ratio 1.2 (1.1-1.8); Alkaline Phosphatase 64 U/L (38-126); Anion Gap 13.4 mEq/L (5-15); Aspartate Amino Transferase 32 U/L (14-36); Bilirubin,Total 0.3 mg/dl (0.2-1.3); Blood Urea Nitrogen 11 mg/dl (7-17); Calcium 9.6 mg/dl (8.4-10.2); Carbon Dioxide 29 mmol/L (22.0-30.0); Chloride 101 mmol/L (98-107); Estimated Glomerular Filt Rate 70 ml/min (>60); GFR (African American) 85 ML/MIN (>60); Globulin 3.5 g/dL (1.3-3.2); Glucose 97 mg/dl (74-100); Potassium 4.4 mmoL/L (3.5-5.1); Sodium 139 mmol/L (136-145); Total Protein,Serum 7.8 g/dl (6.3-8.2)
[2024-02-20 14:34] LABS: 25-OH Vitamin D, Total 24.3 ng/mL (30-100)
[2024-02-20 15:07] LABS: Vitamin B12 242 pg/mL (239-931)
[2024-02-20 15:23] LABS: Iron 72 ug/dL (37-170); Total Iron Binding Capacity 348 ug/dL (265-497)
[2024-02-20 15:47] LABS: Ferritin 24.1 ng/ml (6.24-137)
[2024-02-22 07:40] LABS: Triiodothyronine (T3) Total 136 ng/dL (71-180)
[2024-02-22 12:17] LABS: Folate 3.89 ng/mL
== END 2024-02-20 23:59 | disposition home or self-care (01) ==
LOC: LAB 12:49
PROVIDERS: PCP Nurse Practitioner; Visit Provider Nurse Practitioner
DX: E03.9 Hypothyroidism, unspecified (principal); E53.8 Deficiency of other specified B group vitamins; E61.1 Iron deficiency; E55.9 Vitamin D deficiency, unspecified
CPT/HCPCS: 36415; 80053; 82306; 82607; 82728; 82746; 83540; 83550; 84480; 85025

== ENCOUNTER 2024-05-30 15:11 | Emergency (ER) | payer OTHER, SELFPAY ==
[2024-05-30 15:24] VITALS: BP 139/74; PULSE 81; RESP 16; TEMP 36.7; O2SAT 99; BMI 40.3
--- NOTE | 2024-05-30 15:24 | XR_ITS ---
PROCEDURE INFORMATION: Exam: XR Left Foot Exam date and time: 05/30/2024 3:38 PM Age: 38 years old Clinical indication: Injury or trauma; Fall; Blunt trauma; Foot; Left TECHNIQUE: Imaging protocol: Radiologic exam of the left foot. Views: 3 or more views. COMPARISON: CR XR FOOT LT MIN 3V 05/30/2024 3:38 PM FINDINGS: Bones/joints: There is no evidence of acute fracture.There is no evidence of malalignment or dislocation. Soft tissues: Soft tissue swelling over the dorsum of the foot IMPRESSION: There is no evidence of acute fracture.There is no evidence of malalignment or dislocation.
--- NOTE | 2024-05-30 15:24 | XR_ITS ---
PROCEDURE INFORMATION: Exam: XR Left Ankle Exam date and time: 05/30/2024 3:38 PM Age: 38 years old Clinical indication: Injury or trauma; Fall; Blunt trauma; Ankle; Left TECHNIQUE: Imaging protocol: Radiologic exam of the left ankle. Views: 3 or more views. COMPARISON: CR XR ANKLE LT MIN 3V 05/30/2024 3:38 PM FINDINGS: Bones/joints: There is no evidence of acute fracture.There is no evidence of malalignment or dislocation. Soft tissues: Significant soft tissue swelling of the leg and ankle.. IMPRESSION: 1. Significant soft tissue swelling of the leg and ankle.. 2. There is no evidence of acute fracture.There is no evidence of malalignment or dislocation.
--- NOTE | 2024-05-30 15:24 | XR_ITS ---
PROCEDURE INFORMATION: Exam: XR Left Tibia and Fibula Exam date and time: 05/30/2024 3:38 PM Age: 38 years old Clinical indication: Injury or trauma; Fall; Blunt trauma; Lower leg; Left TECHNIQUE: Imaging protocol: Radiologic exam of the left tibia and fibula. Views: 2 views. COMPARISON: CR XR ANKLE LT MIN 3V 05/30/2024 3:38 PM FINDINGS: Bones/joints: There is no evidence of acute fracture.There is no evidence of malalignment or dislocation. 1.5 cm sclerotic density noted in the proximal tibia compatible with bone island (enostosis) in patient without history of neoplastic disease. Nuclear medicine bone scan may be useful for further evaluation if clinically indicated. Soft tissues: Soft tissue swelling of the leg. IMPRESSION: There is no evidence of acute fracture.There is no evidence of malalignment or dislocation.
--- NOTE | 2024-05-30 15:52 | ED_ITS ---
Discharge Plan Disposition Patient Disposition: Home, Self-Care Condition: Good Prescriptions Prescriptions: New ibuprofen [IBU] 800 mg tablet 800 mg PO Q8HP PRN (Reason: Moderate Pain) Qty: 30 0RF No Action levothyroxine 150 mcg capsule 150 mcg PO DAILY buprenorphine-naloxone 8-2 mg tablet, sublingual 2 tab SUBLINGUAL DAILY phentermine [Adipex-P] 37.5 mg tablet 37.5 mg PO DAILY Qty: 30 0RF Rx Instructions: must administer 30 minutes before or 1-2 hours after breakfast cephalexin 500 mg capsule 500 mg PO QID Qty: 40 0RF Referrals Follow up/Referrals: Prunima Bianchi APRN [Primary Care Provider] - See instructions Arabella Nix DPM [Staff Physician] - See instructions Activity Restrictions/Add. Instructions Additional Instructions/Restrictions: Rest the extremity, Elevate the extremity as tolerated while you are resting. Take the medication as directed. Follow up with Dr. Nix (orthopedics/podiatry). I put in a referral but you need to call her office and schedule an appointment. Follow up with your regular doctor. GO TO THE ER FOR ANY WORSENING SYMPTOMS Clinical Impressions Clinical Impression: Left hand tendonitis, Left wrist tendonitis, Left hand pain Stand Alone Forms Stand Alone Forms: Work/School Release Instructions Patient Instructions: DI for Tendinitis Print Language Print Language: Bhutanese Discharge ED Provider: Aram Mendez [facility] General Stated complaint: AO 05/28/24 inj to left leg and ankle Mode of Arrival: Ambulatory Source of Information: Patient Limitations: No Limitations Time Seen by Provider: 05/30/24 15:52 HEENT Symptoms (Recalled from RN notes): No Resp Symptoms (Recalled from RN notes): No Skin Symptoms (Recalled from RN notes): No MS Symptoms (Recalled from RN notes): Yes Functional Status (Recalled from RN notes): wnl History of Present Illness Provider Complaint: States she fell off of her porch on 05/28 and then twisted her left ankle on 05/29. Related Data Home Medications ?Medication ?Instructions ?Recorded ?Confirmed buprenorphine 8 mg-naloxone 2 mg 2 tab SUBLINGUAL DAILY addiction 03/21/21 06/12/23 sublingual tablet levothyroxine 150 mcg capsule 150 mcg PO DAILY thyroid 03/21/21 03/18/22 Previous Rx's ?Medication ?Instructions ?Recorded phentermine 37.5 mg tablet 37.5 mg PO DAILY #30 tabs 09/04/21 (Adipex-P) cephalexin 500 mg capsule 500 mg PO QID #40 caps 06/12/23 ibuprofen 800 mg tablet (IBU) 800 mg PO Q8HP PRN Moderate Pain 05/30/24 #30 tabs Allergies Allergy/AdvReac Type Severity Reaction Status Date / Time No Known Allergies Allergy Verified 03/18/22 12:56 Worker's Comp Is this a Worker's Comp case?: No PFSH [facility] Disclaimer: The information contained in this section may have been updated after the patient was seen, as this information can be updated by other users. Medical History (Updated 05/30/24 @ 15:42 by Aram Mendez APRN) Hypothyroidism Tobacco dependence syndrome Hepatitis C Edema Palpitations Social History Smoking Status: Current every day smoker tobacco type: cigarettes packs per day: 1 second hand exposure: Yes alcohol intake: never substance use type: former substance user and heroin current occupational status: unemployed Travel in the last 8 weeks: None household members: family housing: house ROS Obtained: Yes All systems reviewed & no additional complaints except as documented Constitutional Constitutional: Denies chills and Denies fever(s) Eyes Eyes: Denies eye discharge ENT Ears, Nose, Mouth, and Throat: Denies dizziness, Denies otalgia and Denies sore throat Cardiovascular Cardiovascular: Denies chest pain Respiratory Respiratory: Denies shortness of breath, Denies chest congestion, Denies cough, Denies stridor and Denies wheezing Gastrointestinal Gastrointestingal: Denies nausea or vomiting Musculoskeletal Musculoskeletal: Reports as per HPI Integumentary/Breasts Skin/Breast: Denies redness, Denies rash and Denies wounds Neurologic Neurologic: Denies dizziness and Denies paresthesias Allergic/Immunologic Allergic/Immunologic: Denies wheezing Physical Exam General General appearance: alert and in no apparent distress Head Head exam: atraumatic, normocephalic and normal inspection Eye Eye exam: Present normal appearance, PERRL and EOMI ENT ENT exam: Present normal exam, normal oropharynx, mucous membranes moist, TM's normal bilaterally and normal external ear exam Neck Neck exam: Present normal inspection, full ROM and trachea midline; Absent meningismus or lymphadenopathy Chest Chest inspection: Present normal inspection and symmetric chest wall rise; Absent tenderness Respiratory Respiratory exam: Present normal lung sounds bilaterally; Absent respiratory distress Cardiovascular Cardiovascular exam: Present regular rate and normal rhythm; Absent JVD Abdominal Exam Abdominal exam: Present soft and normal bowel sounds; Absent distention, tenderness or guarding Extremities Exam Extremities exam: Present normal capillary refill; Absent calf tenderness Expanded Lower Extremity Exam Right: Hip/Pelvis exam: Present normal inspection and full ROM; Absent tenderness Upper leg exam: Present normal inspection and full ROM; Absent tenderness Knee exam: Present normal inspection, full ROM and knee extension intact; Absent tenderness, effusion, anterior drawer sign, posterior draw sign, pain with valgus, laxity with valgus, pain with varus or laxity with varus Lower leg exam: Present full ROM, tenderness, swelling and Achilles tendon intact; Absent abrasion, laceration, ecchymosis, deformity, crepitus, dislocation, erythema, palpable cord or Homans' sign Ankle exam: Present tenderness, swelling and ecchymosis; Absent full ROM, abrasion, laceration, deformity, crepitus, dislocation, erythema, tenderness over talofibular lig or anterior draw sign Foot/toe exam: Present tenderness, swelling and ecchymosis; Absent full ROM, abrasion, laceration, deformity, crepitus, dislocation, erythema, amputation, puncture wound, foreign body, calcaneal tenderness, tenderness at base of 5th metatarsal, nail avulsion or subungual hematoma Neurovascular/Tendon exam: Present normal capillary refill, normal 2-point discrimination and normal fine/light touch; Absent pulse deficit, motor deficit, sensory deficit, tendon deficit, extremity cold to touch or pallor Gait: observed and limited by pain Back Exam Back exam: Present normal inspection; Absent tenderness Neurological Exam Neurological exam: Present alert and oriented X3 Psychiatric Psychiatric exam: Present normal affect and normal mood Skin Skin exam: Present warm, dry, intact and normal color Lymphatic Lymphatic Findings: no adenopathy Medical Decision Making Medical Records Medical records reviewed: No I reviewed the patient's medical records. Screening: Per USPSTF and CDC recommendations, given the prevalence of disease in our region, it is our hospital?s policy to screen for HIV and viral Hepatitis for all patients aged 18 and over and those with ongoing risk factors. Nash Inquiry Pt receiving controlled substance: No Vital Signs: 05/30/24 15:24 Temperature 98.0 F Temperature Source Oral Pulse Rate [Radial] 81 Respiratory Rate 16 Blood Pressure [Right Arm] 139/74 Blood Pressure Mean [Right Arm] 95 Blood Pressure Source [Right Arm] Automatic Cuff Blood Pressure Position [Right Arm] Sitting 02 Sat by Pulse Oximetry 99 Oxygen Delivery Method Room Air Orders (Tests/Meds): ORDERS Category Date Time Status Foot XR left minimum 3 views [XR foot LT min 3V] Stat Exams 05/30/24 15:24 Taken XR ankle LT min 3V Stat Exams 05/30/24 15:24 Taken XR tibia fibula LT 2V Stat Exams 05/30/24 15:24 Taken Procedures Risk/Benefits of Procedure(s) Were Explained: Yes Orthopedic Splinting/Casting Injury #1: Side: right Lower Extremity Injury Location: lower leg, ankle and foot Lower Extremity Immobilizer: boot orthosis and applied by nurse/dr callejas Post Cast/Splinting Neuro Status: intact and no change Post Cast/Splinting Vasc Status: intact and no change
[2024-05-30 17:11] VITALS: BP 139/74; PULSE 81; RESP 16; TEMP 36.7; O2SAT 99
== END 2024-05-30 17:15 | disposition home or self-care (01) ==
PROVIDERS: Emergency Provider Nurse Practitioner Family; PCP Nurse Practitioner
DX: M25.572 Pain in left ankle and joints of left foot (principal); M67.874 Other specified disorders of tendon, left ankle and foot; W17.89XA Other fall from one level to another, initial encounter
CPT/HCPCS: 73590; 73610; 73630; 99212; 99214; G0463

== ENCOUNTER 2024-06-16 13:40 | Outpatient (CLI) | payer OTHER, SELFPAY ==
--- NOTE | 2024-06-16 13:43 | XR_ITS ---
FINAL REPORT CLINICAL HISTORY: Left ankle injury COMPARISON: 05/30/2024 FINDINGS: LEFT ANKLE: Three views of the left ankle were obtained. There is no acute fracture or dislocation. The joint spaces and mortise are intact. Soft tissue swelling is noted surrounding the left ankle. IMPRESSION: Diffuse soft tissue swelling without acute bony abnormality identified. Reviewed, Interpreted and Dictated by Nick Mckeon III, MD Transcribed by Cristina Diaz Authenticated and [facility]
== END 2024-06-16 23:59 | disposition home or self-care (01) ==
LOC: RAD 13:41
PROVIDERS: PCP Nurse Practitioner; Visit Provider Physician Assistant
DX: M25.572 Pain in left ankle and joints of left foot (principal); S99.912A Unspecified injury of left ankle, initial encounter
CPT/HCPCS: 73610

== ENCOUNTER 2024-10-04 16:13 | Outpatient (CLI) | payer OTHER, SELFPAY | END 2024-10-04 23:59 | disposition home or self-care (01) | LOC: LAB 16:14 | PROVIDERS: PCP Nurse Practitioner; Visit Provider Nurse Practitioner | DX: Z02.9 Encounter for administrative examinations, unspecified (principal) ==

== ENCOUNTER 2025-03-08 10:57 | Emergency (ER) | payer OTHER, SELFPAY ==
[2025-03-08 11:02] VITALS: BP 152/88; PULSE 82; RESP 19
[2025-03-08 11:05] VITALS: BP 151/88; PULSE 82; RESP 19; TEMP 36.9; O2SAT 97; BMI 41.1
--- NOTE | 2025-03-08 11:05 | CA_ITS ---
FINAL REPORT TECHNIQUE: extremity venous duplex was performed with augmentation and compression. CLINICAL HISTORY: Left leg [id number] FINDINGS: Proper flow is seen throughout the deep venous system. There is no evidence of deep venous thrombosis. IMPRESSION: No evidence of left lower extremity deep venous thrombosis. Reviewed, Interpreted and Dictated by Eliezer Post MD Transcribed by Lissa Bradley Authenticated and [facility]
--- OUTSIDE RECORDS SUMMARY | 2025-03-08 11:06 | XMS_ITS | Data Portability ---
Author Organization [facility] Address [address] [place] [address] Care Team Providers Care Barrel Lathe Operator Name Role Phone LE TIPTON Lithopress Operator Unavailable Assessment Encounter Date Assessment Date Assessment LastModified by Organization Details LastModified Time 04/02/2018 04/02/2018 she has a tank driver [email or web address] Not available 04/02/2018 20:54:37 Plan of Treatment Reminders Order Date Submit Date Provider Last Modified By Organization Details Last Modified Time Details Appointments None recorded. Lab hepatitis C virus RNA, quant, PCR, serum or plasma 2017 018 ROSANGELA [facility], [address], [address], [place], [address], 8 10:16:42 CMP, serum or plasma 2017 018 ROSANGELA [facility], [address], [place] [address], [place], [address], 8 10:16:40 hepatic function panel, serum 2017 018 ROSANGELA [facility], [address], [address], [place], [address], 8 10:16:41 TSH + free T4, serum 2017 018 ROSANGELA [facility], [address], [address], [place], [address], 8 10:16:39 T3, free, serum or plasma 2017 018 ROSANGELA [facility], [address], [address], [place], [address], 8 10:16:43 pap, IG + CT/NG + reflex HPV (16+18) 2017 018 ROSANGELA [facility], [address], [place], [place], [address], 8 15:16:55 Referral substance abuse rehabilita tion referral - faxed [facility], they will call patient with oanh lozoya.Phone # [phone] Not available 8 08:06:27 gastroente rologist referral 2017 018 [email or web address] Edward Javed MD, [address] [place] [address] , [place] [address], [place], [address], 8 11:40:30 Procedures None recorded. Surgeries None recorded. Imaging None recorded. Medication Orders Voltaren Arthritis Pain 1 % topical gel [address] [facility], [address] [place] [address], [id number], 3 16:02:19 prednisone 20 mg tablet [address] [facility], [address] [place] [address], [id number], 3 16:02:22 clindamyci n HCl 300 mg capsule [address] [facility], [address] [place] [address], [id number], 3 16:02:16 ketorolac 60 mg/2 mL intramuscu lar solution 2017 018 [email or web address] Not available 3 15:36:55 prednisone 20 mg tablet 2017 018 [facility] [id number], [address] [facility] , [place], [address], 3 15:37:04 promethazi ne 25 mg/mL injection solution 2017 018 [email or web address] Not available 3 15:37:16 sumatripta n 25 mg tablet 2017 018 [facility] [id number], [address] [facility] , [place], [address], 3 15:44:17 levothyrox ine 25 mcg tablet 2017 018 [facility] [id number], [address] [facility] , [place], [address], 8 16:03:11 triamcinol one acetonide 0.1 % topical cream 2017 018 [email or web address] [facility] [id number], [address] [facility] , [place], [address], 8 15:43:15 Patient TargetsNo targets recorded. Patient Instructions Encounter Date Encounter Id Patient Instructions Last Modified By Organization Details Last Modified Time 01/06/2018 [id number] 1. Potential for scar tissue r/t previous surgeries discussed. Sandra recounts significant MERON with recent appendectomy 6-12 months ago. 2. Consider DMPA vs Mirena for heavy menstrual bleeding in hopes of decreasing pain with menses. 3. Plan family medicine referral to establish care for hx of hypothyroidism and hx of Hep C. Not available 01/06/2018 20:14:51 1. Treatment options for heavy menstrual bleeding and painful cycles discussed including regular dosed NSAIDS, initiating hormonal therapy, inserting a progestin releasing IUD, minor surgery (D&C, endometrial ablation) and major surgery (hysterectomy). Risks, benefits, and alternatives to all therapies discussed. She chooses possible progestin releasing IUD. Pamphlet given for her review. 2. We will call abnormal test results in 7-10 days. Patient is advised that normal test results will be retrievable through [employer] Patient Portal and that they will be notified of the availability of normal results from [facility] by phone call, text or email. Not available 01/06/2018 20:13:45 04/02/2018 [id number] discussed migrai ne SORIANO's in detail. encouraged her to stay well hydrated, drink water and limit caffeine intake (if she is drinking a lot, slowly wean herself off). be sure to get plenty of rest. avoid food/drinks that may aggravate it - like hard cheeses, processed meats, beer and red wine. if SORIANO's recur, keep a SORIANO diary and try to document anything that might be a trigger. Call or RTC or go to ER for any red flag symptoms, such as fever, acute worsening, acute visual changes, weakness or numbness [email or web address] Not available 04/02/2018 15:19:02 Reason for Referral Anglesmith Helper Referral for Viral hepatitis C Hepatitis C Referring Physician: Le Tipton, SENIOR PROJECT LEADER/TEAM LEAD, Encounter Date: 01/06/2018 Substance Abuse Rehabilitati on Referral for History of heroin abuse faxed to [facility], they will call patient with appointment.. Referring Physician: Agustin Heck, Family Medicine, Encounter Date: 01/19/2018 Results Created Date Observation Date Name Description Value Unit Range Abnormal Flag Note LastModifiedBy Organization Detail LastModifiedTime 01/07/20 18 01/08/2018 pap, IG + CT/NG + refle x HPV (16+1 8) HPV, high-risk Negati ve negati ve This high- risk HPV test detec ts thirt een high- risk types (16/1 8/31/ 33/35 /39/4 5/51/ 52/56 /58/5 ) witho ut diffe renti ation . Not Available [facility] ([facility]) [address] [facility], [place], [address], 01/09/2018 15:16:55 01/07/20 18 01/08/2018 pap, IG + CT/NG + refle x HPV (16+1 8) chlamydia, nuc. acid amp Negati ve negati ve Not Available [facility] ([facility]) [address] [place], [address], 01/09/2018 15:16:55 01/07/20 18 01/08/2018 pap, IG + CT/NG + refle x HPV (16+1 8) gonococcus, nuc. acid amp Negati ve negati ve Not Available [facility] ([facility]) [address] [place], [address], 01/09/2018 15:16:55 01/07/20 18 01/09/2018 pap, IG + CT/NG + refle x HPV (16+1 8) diagnosis: Commen t NEGAT COLLIN FOR INTRA EPITH ELIAL LESIO N AND MALIG MAKAYLA . REACT COLLIN CELLU LAR JOYA ES AND/O R REPAI R ARE PRESE NT. Not Available [facility] ([facility]) [address] [facility], [place], [address], 01/09/2018 15:16:55 01/07/20 18 01/09/2018 pap, IG + CT/NG + refle x HPV (16+1 8) specimen adequacy: Commen t Satis facto ry for evalu ation . Endoc ervic al and/o r squam ous metap lasti c cells (endo cervi therese compo nent) are prese nt. Not Available [facility] ([facility]) [address] [facility], [place], [address], 01/09/2018 15:16:55 01/07/20 18 01/09/2018 pap, IG + CT/NG + refle x HPV (16+1 8) clinician provided ICD10: Commen t Z12.4 Z11.5 1 Z11.8 Not Available [facility] ([facility]) [address] [facility], [place], [address], 01/09/2018 15:16:55 01/07/20 18 01/09/2018 pap, IG + CT/NG + refle x HPV (16+1 8) performed by: Sebas reeves, Cytot echno logis t (ASCP ) Not Available [facility] ([facility]) [address] [facility], [place], [address], 01/09/2018 15:16:55 01/07/20 18 01/09/2018 pap, IG + CT/NG + refle x HPV (16+1 8) electronical ly signed by: Sebas Delgado MD, Patho logis t Not Available [facility] ([facility]) [address] [place], [address], 01/09/2018 15:16:55 01/07/20 18 01/09/2018 pap, IG + CT/NG + refle x HPV (16+1 8) . . Not Available [facility] ([facility]) [address] [facility], [place], [address], 01/09/2018 15:16:55 01/07/20 18 01/09/2018 pap, IG + CT/NG + refle x HPV (16+1 8) note: Sebas doran The Pap smear is a scree zina test desig beau to aid in the detec tion of jaylen ligna nt and malig nant condi tions of the uteri ne cervi x. It is not a diagn ostic proce dure and shoul d not be used as the sole means of detec ting cervi therese cance r. Both false -posi tive and false -nega tive repor ts do occur . Not Available [facility] ([facility]) [address] [facility], [place], [address], 01/09/2018 15:16:55 01/07/20 18 01/09/2018 pap, IG + CT/NG + refle x HPV (16+1 8) test methodology: Sebas doran This liqui d based ThinP rep(R ) pap test was scree beau with the use of an image guide d syste m. Not Available [facility] ([facility]) [address] [place], [address], 01/09/2018 15:16:55 01/20/20 18 01/20/2018 TSH + free T4, serum TSH 23.440 uIU/m L 0.450- 4.500 above high normal Not Available [facility] ([facility]) [address] [place], [address], 01/22/2018 10:16:39 01/20/20 18 01/20/2018 TSH + free T4, serum T4,free(dire ct) 0.91 NG/dL 0.82-1 .77 Not Available [facility] ([facility]) [address] [place], [address], 01/22/2018 10:16:39 01/20/20 18 01/20/2018 CMP, serum or plasm a glucose 74 mg/dL 65-99 Speci men recei margarita in conta ct with cells . No visib le hemol ysis prese nt. Howev er GLUC may be decre ased and K incre ased. Clini therese corre latio n indic ated. Not Available [facility] ([facility]) [address] [place], [address], 01/22/2018 10:16:40 01/20/20 18 01/20/2018 CMP, serum or plasm a BUN 10 mg/dL 6-20 Not Available [facility] ([facility]) [address] [place], [address], 01/22/2018 10:16:40 01/20/20 18 01/20/2018 CMP, serum or plasm a creatinine 0.76 mg/dL 0.57-1 .00 Not Available [facility] ([facility]) [address] [place], [address], 01/22/2018 10:16:40 01/20/20 18 01/20/2018 CMP, serum or plasm a eGFR if nonafricn AM 105 mL/mi n/1.7 3 >59 Not Available [facility] ([facility]) [address] [facility], [place], [address], 01/22/2018 10:16:40 01/20/20 18 01/20/2018 CMP, serum or plasm a eGFR if africn AM 121 mL/mi n/1.7 3 >59 Not Available [facility] ([facility]) [address] [facility], [place], [address], 01/22/2018 10:16:40 01/20/20 18 01/20/2018 CMP, serum or plasm a BUN/creatini ne ratio 13 9-23 Not Available [facility] ([facility]) [address] [facility], [place], [address], 01/22/2018 10:16:40 01/20/20 18 01/20/2018 CMP, serum or plasm a sodium 141 mmol/ L 134-14 4 Not Available [facility] ([facility]) [address] [place], [address], 01/22/2018 10:16:40 01/20/20 18 01/20/2018 CMP, serum or plasm a potassium 4.1 mmol/ L 3.5-5. 2 Speci men recei margarita in conta ct with cells . No visib le hemol ysis prese nt. Howev er GLUC may be decre ased and K incre ased. Clini therese corre latio n indic ated. Not Available [facility] ([facility]) [address] [facility], [place], [address], 01/22/2018 10:16:40 01/20/20 18 01/20/2018 CMP, serum or plasm a chloride 104 mmol/ L 96-106 Not Available [facility] ([facility]) [address] [facility] [address], [place], [address], 01/22/2018 10:16:40 01/20/20 18 01/20/2018 CMP, serum or plasm a carbon dioxide, total 17 mmol/ L 18-29 below low normal Not Available [facility] ([facility]) [address] [facility] [place], [address], 01/22/2018 10:16:40 01/20/20 18 01/20/2018 CMP, serum or plasm a calcium 9.5 mg/dL 8.7-10 .2 Not Available [facility] ([facility]) [address] [facility], [address], 01/22/2018 10:16:40 01/20/20 18 01/20/2018 CMP, serum or plasm a protein, total 8.1 g/dL 6.0-8. 5 Not Available [facility] ([facility]) [address] [facility] [place], [address], 01/22/2018 10:16:40 01/20/20 18 01/20/2018 CMP, serum or plasm a albumin 4.3 g/dL 3.5-5. 5 Not Available [facility] ([facility] [address] [facility] [place], [address], 01/22/2018 10:16:40 01/20/20 18 01/20/2018 CMP, serum or plasm a globulin, total 3.8 g/dL 1.5-4. 5 Not Available [facility] ([facility]) [address] [facility] [place], [address], 01/22/2018 10:16:40 01/20/20 18 01/20/2018 CMP, serum or plasm a A/G ratio 1.1 1.2-2. 2 below low normal Not Available [facility] ([facility]) [address] [facility] [place], [address], 01/22/2018 10:16:40 01/20/20 18 01/20/2018 CMP, serum or plasm a bilirubin, total 0.4 mg/dL 0.0-1. 2 Not Available [facility] ([facility]) [address] [facility] [place], [address], 01/22/2018 10:16:40 01/20/20 18 01/20/2018 CMP, serum or plasm a alkaline phosphatase 89 IU/L 39-117 Not Available [facility] ([facility]) [address] [facility] [place], [address], 01/22/2018 10:16:40 01/20/20 18 01/20/2018 CMP, serum or plasm a AST (SGOT) 70 IU/L 0-40 above high normal Not Available [facility] ([facility]) [address] [facility] [place], [address], 01/22/2018 10:16:40 01/20/20 18 01/20/2018 CMP, serum or plasm a ALT (SGPT) 70 IU/L 0-32 above high normal Not Available [facility] ([facility]) [address] [facility] [place], [address], 01/22/2018 10:16:40 01/20/20 18 01/20/2018 hepat ic funct ion panel , serum bilirubin, direct 0.11 mg/dL 0.00-0 .40 Not Available [facility] ([facility]) [address] [facility] [place], [address], 01/22/2018 10:16:41 01/20/20 18 01/19/2018 hepat itis C virus RNA, quant , PCR, serum or plasm a test information: Commen t The quant itati ve range of this assay is 15 IU/mL to 100 katie on IU/mL . Not Available [facility] ([facility]) [address] [facility] [place], [address], 01/22/2018 10:16:42 01/20/20 18 01/19/2018 hepat itis C virus RNA, quant , PCR, serum or plasm a please note: Commen t This test was devel oped and its perfo rmanc e jasson cteri stics deter mined by [facility]. It has not been clear ed or appro margarita by the U.S. Food and Drug Admin istra tion. The FDA has deter mined that such clear ance or appro brett is not neces michael. This test is used for clini therese purpo ses. It shoul d not be regar ded as inves tigat ional or for resea rch. Not Available [facility] ([facility]) [address] [place], [address], 01/22/2018 10:16:42 01/20/20 18 01/20/2018 hepat itis C virus RNA, quant , PCR, serum or plasm a hepatitis C quantitation [id number] IU/mL Not Available [facility] ([facility]) [address] [place], [address], 01/22/2018 10:16:42 01/20/20 18 01/20/2018 hepat itis C virus RNA, quant , PCR, serum or plasm a HCV log10 5.797 log10 _IU/m L Not Available [facility] ([facility]) [address] [place], [address], 01/22/2018 10:16:42 01/20/20 18 01/20/2018 hepat itis C virus RNA, quant , PCR, serum or plasm a HCV genotype Commen t To be perfo rmed on this speci men. Not Available [facility] ([facility]) [address] [place], [address], 01/22/2018 10:16:42 01/20/20 18 01/22/2018 hepat itis C virus RNA, quant , PCR, serum or plasm a hepatitis C genotype 1a Not Available [facility] ([facility]) [address] [place], [address], 01/22/2018 10:16:42 01/20/20 18 01/20/2018 T3, free, serum or plasm a triiodothyro nine,free,se rum 3.6 pg/mL 2.0-4. 4 Not Available [facility] ([facility]) [address] [place], [address], 01/22/2018 10:16:43 Result Notes None recorded. Problems Name Problem SNOMED Code Status Onset Date Resolution Date Notes Provider Name and Address Organization Details Recorded Time Viral hepatitis C 37556483 Active 2017 hx of IV Drug use.20 13 YUSUF Villarreal - [facility] 8 11:11:01 Condyloma acuminatu m of the anogen[place] l [place] 314268171 Completed 201701/01/2018 Candace brown, YUSUF - [facility] 8 11:10:31 Condyloma acuminatu m of the anogenita l region 386752578 Active 2017 YUSUF Villarreal - [facility] 8 11:10:31 Hypothyro idism 72547716 Active 2017 YUSUF Villarreal - [facility] 8 11:11:08 High grade squamous intraepit helial lesion on cervical Papanicol aou smear 276436167471 07 Active 2017 YUSUF Villarreal - [facility] 8 11:11:34 History of loop electrosu rgical excision procedure 148775285656 02 Active 2013 per DWD Le ANDRAE Tipton [address], [place], [address], [place] - [facility] 8 13:16:00 Problem Notes None recorded. Procedures Surgical History Date Name Laterality Status Provider Name and Address Organization Details Recorded Time 01/07/20 18 Date of Last Pap Smear completed Le Tipton APRN [address], [place], [address], [place] - [facility] 01/12/2018 00:02:07 05/17/20 14 LEEP completed Candace Lerner [place] - [facility] 018 11:08:52 05/17/20 14 Dilation and Curettage, sharp completed Le Tipton APRN [address], [place], [address], [place] - [facility] 01/06/2018 13:07:51 02/24/20 14 Hernia Repair completed Candace Lerner YUSUF - [facility] 12/08 10:54:39 02/20/20 14 Colposcopy completed Candace GOLDBERG - [facility] 018 11:02:43 02/10/20 14 Colposcopy completed Candace GOLDBERG - [facility] 018 11:01:37 09/13/19 11 Cholecystectomy, laparoscopic completed Candace GOLDBERG - [facility] 01/01/2018 10:55:45 06/13/20 09 Colposcopy completed Candace GOLDBERG [facility] 018 10:54:15 04/17/20 08 Caesarean Section completed Candace GOLDBERG - [facility] 01/01/2018 10:53:39 04/17/20 08 Tubal Ligation completed Candace GOLDBERG [facility] 10:56:03 Appendectomy completed Le AragonANDRAE grant [address], [place], [address], [facility] - [facility] 01/06/2018 13:36:04 Imaging Results None recorded. Procedure Notes None recorded. Medical Equipment None Reported. Allergies No known drug allergies Medications Name Sig Start Date Stop Date Status Note LastModified by Organization Details LastModified Time Miralax 17 gram oral powder packet take 1 packet (17 gram) mixed with 8 oz. water, juice, soda, coffee or tea by oral route once daily for 30 days 04/09 completed Miralax 17 gram oral powder in packet;R ecorded Status: Recorded on: 05/02/20 09 2:40PM;D iscontin ued Status: Disconti nued on: 04/09/20 10 4:21PM;U ser: [email or web address];E st. Completi on: 06/01/20 09;Indic ation: Constipa tion - (.5640 00);Prin leno: 05/02/20 09 Not Available Not Available Not Available cyclobenz aprine 10 mg tablet 01/06 completed Not Available Not Available Not Available amoxicill in 500 mg capsule 01/06 completed Not Available Not Available Not Available clindamyc in HCl 300 mg capsule Take 1 capsule every 8 hours by oral route for 10 days, for cellulit is. active Not Available Not Available No t Available IBU 800 mg tablet take 1 tablet (800 mg) by oral route 4 times per day with food prn 01/06 completed Not Available Not Available Not Available hydrocodo ne 5 mg-acetam inophen 325 mg tablet 01/06 completed Not Available Not Available Not Available sumatript an 25 mg tablet Take 1 tablet twice a day by oral route as needed. 08/22 completed Not Available Not Available Not Available prednison e 20 mg tablet Take 1 tablet twice a day by oral route for 5 days. active Not Available Not Available No t Available Diflucan 150 mg tablet take 1 tablet (150 mg) by oral route once for 2 days 04/01 completed Diflucan 150 mg oral tablet;P rescribe Status: Prescrib ed on: 02/02/20 14 1:44PM;D iscontin ued Status: Disconti nued on: 04/01/20 14 4:11PM;U ser: [email or web address] ;Est. Completi on: 02/04/20 14;Pharm acyVerif ied: 02/02/20 14 1:44PM Not Available Not Available Not Available sulfameth oxazole 800 mg-trimet hoprim 160 mg tablet 08/22 completed Not Available Not Available Not Available tramadol 50 mg tablet take 1 tablet (50 mg) by oral route every 4-6 hours as needed 01/06 completed tramadol 50 mg oral tablet;R ecorded Status: Recorded on: 06/07/20 15 3:32PM;U ser: gored Not Available Not Available Not Available triamcino lone acetonide 0.1 % topical cream apply a thin layer to the affected area(s) by topical route 2 times per day for 14 days 03/24 completed Not Available Not Available Not Available levothyro xine 25 mcg tablet Take 1 tablet every day by oral route before meals. active Not Available Not Available No t Available Zofran 4 mg tablet 1 po q6h 01/31 completed Zofran (as hydrochl oride) 4 mg oral tablet;R ecorded Status: Recorded on: 06/11/20 08 10:02PM; Disconti nued Status: Disconti nued on: 02/01/20 09 11:42AM; User: rama Not Available Not Available Not Available Flagyl 500 mg tablet take 1 tablet (500 mg) by oral route 2 times per day for 7 days 04/01 completed Flagyl 500 mg oral tablet;P rescribe Status: Prescrib ed on: 02/10/20 14 10:47AM; Disconti nued Status: Disconti nued on: 04/01/20 14 4:11PM;U ser: [email or web address]; Est. Completi on: 02/17/20 14 Not Available Not Available Not Available levothyro xine 50 mcg tablet take 1 tablet (50 mcg) by oral route once daily 02/01 completed levothyr oxine 50 mcg oral tablet;R ecorded Status: Recorded on: 04/09/20 10 4:21PM;D iscontin ued Status: Disconti nued on: 02/02/20 14 1:05PM;U ser: luz maria Sorianoti on: Hypothyr oidism - () Not Available Not Available Not Available cephalexi n 500 mg capsule 08/22 completed Not Available Not Available Not Available Proctofoa m HC 1 %-1 % one min VA BID x 10d 01/31 completed Proctofo am HC 1-1 % rectal foam;Rec orded Status: Recorded on: 06/11/20 08 10:04PM; Disconti nued Status: Disconti nued on: 02/01/20 09 11:42AM; User: showerl Not Available Not Available Not Available promethaz ine 25 mg/mL injection solution Take 1 mL by injectio n route. 08/22 completed Not Available Not Available Not Available Condylox 0.5 % topical gel apply by topical route 2 times per day for 3 consecut collin days, then disconti nue for 4 consecut collin days. This one week cycle for 3 days 06/07 completed Condylox 0.5 % topical gel;Pres cribe Status: Prescrib ed on: 02/10/20 14 10:45AM; Disconti nued Status: Disconti nued on: 06/07/20 15 3:16PM;U ser: [email or web address]; Est. Completi on: 02/16/20 14 Not Available Not Available Not Available ibuprofen 200 mg tablet TAKE 1 TABLET (200 MG) BY ORAL ROUTE EVERY 6 HOURS NEEDED WITH FOOD 08/22 completed Not Available Not Available Not Available mupirocin 2 % topical ointment 08/22 completed Not Available Not Available Not Available ibuprofen 600 mg tablet 01/06 completed Not Available Not Available Not Available ketorolac 60 mg/2 mL intramusc ular solution Inject 2 mL every day by intramus cular route. 08/22 completed Not Available Not Available Not Available fluticaso ne propionat e 50 mcg/actua tion nasal spray,min pension 08/22 completed Not Available Not Available Not Available doxycycli ne hyclate 100 mg tablet take 1 tablet by oral route 2 times a day for 7 days 02/01 completed doxycycl ine hyclate 100 mg oral tablet;R ecorded Status: Recorded on: 04/24/20 10 2:04PM;D iscontin ued Status: Disconti nued on: 02/02/20 14 1:00PM;U ser: [email or web address]; Est. Completi on: 05/01/20 10;Print ed: 04/24/20 10 Not Available Not Available Not Available amoxicill in 875 mg-potass ium clavulana te 125 mg tablet 01/06 completed Not Available Not Available Not Available NuvaRing 0.12 mg-0.015 mg/24 hr vaginal insert by vaginal route once a month for 30 days 04/09 completed NuvaRing 0.12-0.0 15 mg/24 hr vaginal ring;Rec orded Status: Recorded on: 06/27/20 09 10:30AM; Disconti nued Status: Disconti nued on: 04/09/20 10 4:21PM;U ser: [email or web address];E st. Completi on: 09/25/19 10;Print ed: 06/27/20 09 Not Available Not Available Not Available Sprintec (28) 0.25 mg-0.035 mg tablet take 1 tablet by oral route daily for 28 days 02/01 completed Sprintec (28) 0.25-35 mg-mcg oral tablet;R ecorded Status: Recorded on: 04/24/20 10 2:01PM;D iscontin ued Status: Disconti nued on: 02/02/20 14 1:05PM;U ser: [email or web address]; Est. Completi on: 03/26/20 11;Indic ation: Pregnanc y Contrace ption - (18.V259 00);Prin leno: 04/24/20 10 Not Available Not Available Not Available buprenorp shawna 8 mg-naloxo ne 2 mg sublingua l tablet 1 bid active Not Available Not Available Not Available Prenate Elite 90 mg-1 mg-50 mg tablet 1 PO Q D WITH FOOD 01/31 completed Prenate Elite 90-1-50 mg oral tablet;R ecorded Status: Recorded on: 06/11/20 08 10:05PM; Disconti nued Status: Disconti nued on: 02/01/20 09 11:42AM; User: gin nk Not Available Not Available Not Available Repliva 21/7 151 mg-200 mg-1 mg tablet 1 PO Q D WITH FOOD 01/31 completed Repliva 21/7 151-200- 1 mg oral tablet;R ecorded Status: Recorded on: 06/11/20 08 10:04PM; Disconti nued Status: Disconti nued on: 02/01/20 09 11:42AM; User: [email or web address] nk Not Available Not Available Not Available Flexeril one po tid prn for muscle relaxati on 01/06 completed flexeril 10 mg;Recor ded Status: Recorded on: 06/07/20 15 3:32PM;U ser: gored;In dication : - (-5) Not Available Not Available Not Available diclofena c 1 % topical gel APPLY 2 GRAMS TO THE AFFECTED AREA(S) BY TOPICAL ROUTE 4 TIMES PER DAY active Not Available Not Available No t Available Suboxone 4 mg-1 mg sub[address] l film Place 1 film every day by sublingu al route. 01/19 completed Not Available Not Available Not Available Vitals Date Recorded Body weight Body mass index (BMI) Body height Provider Name and Address Organization Details Last Updated DateTime 01/06/2018 17737.95 g 33.8 kg/m2 170.18 cm Candace Lerner [place] - [facility] 01/06/2018 12:58:55 Date Recorded Body height Body mass index (BMI) Body weight Body temperature Heart rate Oxygen saturation Oxygen saturation in Arterial blood by Pulse oximetry Respiratory rate Systolic And Diastolic Provider Name and Address Organization Details Last Updated DateTime 8 170.18 cm 33.5 kg/m2 01846.4 7 g 98.2 [degF] 88 /min 98 % 98 % 16 /min 122/78 mm[Hg] Priscila Chandler [place] - [facility] 8 09:59:08 Date Recorded Body height Body mass index (BMI) Body weight Body temperature Heart rate Oxygen saturation Oxygen saturation in Arterial blood by Pulse oximetry Respiratory rate Systolic And Diastolic Provider Name and Address Organization Details Last Updated DateTime 8 170.18 cm 34.8 kg/m2 209834. 51 g 98.6 [degF] 84 /min 98 % 98 % 16 /min 122/88 mm[Hg] Anasulaiman Lu [place] - [facility] 8 15:46:25 Date Recorded Body height Body mass index (BMI) Body weight Body temperature Respiratory rate Oxygen saturation Oxygen saturation in Arterial blood by Pulse oximetry Heart rate Systolic And Diastolic Provider Name and Address Organization Details Last Updated DateTime 8 170.18 cm 34.5 kg/m2 62283.0 2 g 98.8 [degF] 20 /min 97 % 97 % 82 /min 110/70 mm[Hg] Sarah Weller [place] - [facility] 8 14:46:16 Date Recorded Body height Body mass index (BMI) Body weight Body temperature Heart rate Oxygen saturation Oxygen saturation in Arterial blood by Pulse oximetry Respiratory rate Systolic And Diastolic Provider Name and Address Organization Details Last Updated DateTime 3 170.18 cm 38.5 kg/m2 712380. 72 g 98.4 [degF] 66 /min 98 % 98 % 18 /min 116/74 mm[Hg] Sharri Porter [place] - [facility] 3 15:43:44 Social History Question Answer Notes LastModified by Organizat ion Details LastModified Time Tobacco Smoking Status Current Every Day Smoker Candace brown [place] - [facility] 01/06/2018 13:02:03 Do You Have An Advance Directive? No [email or web address] Information not available 01/06/2018 Are You Blind Or Do You Have Difficulty Seeing? No [email or web address] Information not available 01/06/2018 Is Blood Transfusion Acceptable In An Emergency? Yes [email or web address] Information not available 01/06/2018 What Is Your Level Of Caffeine Consumption? Moderate [email or web address] Information not available 01/06/2018 How Much Tobacco Do You Chew? None [email or web address] Information not available 01/06/2018 Are You Deaf Or Do You Have Serious Difficulty Hearing? No [email or web address] Information not available 01/06/2018 What Type Of Diet Are You Following? REGULAR [email or web address] Information not available 01/06/2018 Which Illicit Or Recreational Drugs Have You Used? Former Former Drug User Information not available 08/22/2023 What Is The Highest Grade Or Level Of School You Have Completed Or The Highest Degree You Have Received? [id number] [email or web address] Information not available 01/06/2018 How Many Days Of Moderate To Strenuous Exercise, Like A Brisk Walk, Did You Do In The Last 7 Days? 3 [email or web address] Information not available 01/06/2018 On Those Days That You Engage In Moderate To Strenuous Exercise, How Many Minutes, On Average, Do You Exercise? 60 [email or web address] Information not available 01/06/2018 Have There Been Any Changes To Your Family Or Social Situation? No Information not available 08/22/2023 How Hard Is It For You To Pay For The Very Basics Like Food, Housing, Medical Care, And Heating? [id number] [email or web address] Information not available 01/06/2018 What Is The Fluoride Status Of Your Home? Unknown Information not available 08/22/2023 Last Menstrual Period? 12/11/2017 [email or web address] Information not available 01/06/2018 Do You Have A Medical Power Of Custom Feed Mill Operator Helper? No Information not available 08/22/2023 What Was The Date Of Your Most Recent Tobacco Screening? 08/22/2023 Information not available 08/22/2023 How Many Children Do You Have? 2 [email or web address] Information not available 01/06/2018 What Is Your Current Pack Years? 20-29packyea rs Information not available 08/22/2023 Performs Monthly Self-breast Exam? Yes [email or web address] Information not available 01/06/2018 Do You Use Protection During Sex? Always [email or web address] Information not available 01/06/2018 What Is Your Relationship Status? Single [email or web address] Information not available 01/06/2018 Seat Belts Used Routinely Yes [email or web address] Information not available 01/06/2018 Are You Sexually Active? Yes [email or web address] Information not available 01/06/2018 Do You Have Smoke And Carbon Monoxide Detectors In Your Home? Yes Information not available 08/22/2023 At What Age Did You Start Smoking Tobacco? 15 [email or web address] Information not available 01/06/2018 How Much Tobacco Do You Smoke? 1 PPD [email or web address] Information not available 01/06/2018 General Stress Level Medium [email or web address] Information not available 01/06/2018 Do You Use Sunscreen Routinely? Yes [email or web address] Information not available 01/06/2018 Has Tobacco Cessation Counseling Been Provided? Yes [email or web address] Information not available 01/06/2018 On What Date Was Tobacco Cessation Counseling Provided? 08/22/2023 Information not available 08/22/2023 How Many Years Have You Smoked Tobacco? 24 Information not available 08/22/2023 Do You Have Difficulty Walking Or Climbing Stairs? No [email or web address] Information not available 01/06/2018 Sex: Female Functional Status Question Answer Note LastModified by Organizat ion Details LastModified Time Do you use any illicit or recreational drugs? No Information not available 08/22/2023 Do you or have you ever used any other forms of tobacco or nicotine? No Information not available 08/22/2023 What is your level of alcohol consumption? None sober years Information not available 08/22/2023 Are you currently employed? Yes [email or web address] Information not available 01/06/2018 Do you have transportation difficulties? No Information not available 08/22/2023 Are you able to walk? YESWOREST [email or web address] Information not available 01/06/2018 Do you have difficulty doing errands alone? No [email or web address] Information not available 01/06/2018 Are you able to care for yourself? Yes Information n ot available 08/22/2023 What is your occupation? [employer] Information not available 08/22/2023 Do you have difficulty dressing or bathing? No [email or web address] Information not available 01/06/2018 What is your exercise level? Occasional [email or web address] Information not available 01/06/2018 Mental Status Question Answer Note LastModified by Organizat ion Details LastModified Time Do you feel stressed (tense, restless, nervous, or anxious, or unable to sleep at night)? [id number] [email or web address] Information not available 01/06/2018 Do you have difficulty concentrating, remembering or making decisions? No [email or web address] Information no t available 01/06/2018 Family History Relationship Description Onset Age of this Age Resolved Age Notes LastModified by Organization Details LastModified Time Maternal Uncle Neoplasm of brain stem Not available 01/01 10:56:22 Paternal Grandfather Diabetes mellitus [email or web address] Not available 2017 10:56:34 Paternal Grandfather Heart disease [email or web address] Not available 2017 10:57:00 Paternal Grandfather Hypothyroidi sm [email or web address] Not available 2017 10:57:27 Maternal Grandfather Heart disease [email or web address] Not available 2017 10:57:00 Paternal Grandmother Heart disease [email or web address] Not available 2017 10:57:00 Maternal Aunt Hypothyroidi sm [email or web address] Not available 2017 10:57:27 Brother Hypothyroidi sm [email or web address] Not available 2017 10:57:27 Maternal Grandmother Malignant neoplasm of lung [email or web address] Not available 2017 10:57:44 Medical History Condition Response Pancreatitis N Other N Atrial Fibrillation N congenital heart disease N Blood Diseases N Hyperthyroidism N Rheumatoid arthritis N Blood Transfusion N Erectile Dysfunction N amputation N Skin Lesions N Depression N Pneumonia N Incontinence N Murmur N Edema N Alzheimer's Disease N Migraine Headaches N Tobacco Abuse N Anxiety Disorder N Hemorrhoids N Obesity N Vision or Eye Problems N Restless Leg Syndrome N Arthritis N Polyps N Infertility N Carpal Tunnel N Acid Reflux (GERD) N Cancer N Varicosities N Stroke N Tendonitis N Crohn's Disease N Hypercholesterolemia N Skin Cancer N Headaches N Fibromyalgia N Irritable Bowel Syndrome N Anal Fissure N Kidney Disease N Heart Problems N Hospitalizations N Gallstones N Kidney or Bladder Problems N Goiter N Acne N Eating Disorder N Holt's Esophagus N Hypertriglyceridemia N Constipation N Embolism N Vitamin B12 Deficiency N Deviated Septum N AIDS/HIV N Myocardial Infarction N Asthma N Mitral Valve Disorders N Vertigo N Hepatitis N Thyroid Cancer N Neuropathy N History of DVT N Herniated Disc N Chicken Pox N Von Willebrands Disease N Thrombophilias N Breast Cancer N Hernia N Plantar Fasciitis N Lung Disease N Hypothyroidism N Defects or Inherited Disease N Breast Problem N Ovarian Cyst N Anesthesia Complications N Testosterone Deficiency N Interstitial Cystitis N Congenital Anomalies N Hypoglycemia N Blood clot N Vitamin D Deficiency N Cellulitis N Endometriosis N Fracture N Bladder or Kidney Problems N Schizophrenia N Panic Disorder N Concussion N Spina Bifida N Osteoarthritis N Parkinson's Disease N Disc Protrusion N STI N Esophagitis N Angina N Thyroid Problems N GI Problems N ADD/ADHD N Anemia N Multiple Sclerosis N Abnormal PAP N Lumbago N Mental Illness N Psychiatric Illness N Ovarian Cancer N Diabetes N Degenerative Disc Disease N Seizures/Epilepsy N Syncope N Insomnia N Hyperlipidemia N Eczema N Dementia N Attention Deficient Disorder N Abuse/Domestic Violence N Ulcerative colitis N Cerebrovascular Disease N Depression N Guillain-[place] N Sleep Apnea N Aneurysm N Heart Disease N Bronchitis N Suicidal Ideation N Pre-Eclampsia N Hypertension N Osteoporosis N Gynecological History Statement/Question Response Abnormal Pap Y Flow Moderate Date of LMP 07/23/2023 On BCP's at Conception? N STIs/STDs N Colposcopy 02/09/2014 Duration of Flow (days) 5 Current Control Method Tubal Ligat ion Age at Menarche 17 Age at First Child 19 Last Annual Exam/Provider 01-06-2018 Frequency of Cycle (Q days) 30 Sexually Active? Y Date of Last Cervical Culture 01/06/2018 Menses Monthly Y Date of Last Pap Smear 01/06/2018 Sexual Problems? N LMP Approximate Hormone Replacement Therapy N Obstetrics History GPAL:G 2 P 2 0 0 2 Type Value Full Term 2 Living 2 Total 2 Immunizations Vaccine Type Date Status Note Provider Jason hilario and Address Organization Details Recorded Time MMR 9 completed Sharri Stears null, [place] - [facility] 08/22/2023 15:36:26 Tdap 4 completed Sharri Stears null, [place] - [facility] 08/22/2023 15:36:26 Influenza, split virus, trivalent, preservative 3 completed Sharri Stears [place] - [facility] 08/22/2023 15:36:26 Td (adult), 2 Lf tetanus toxoid, preservative free, adsorbed 1 completed Sharri Stears [place] - [facility] 08/22/2023 15:36:26 Hep B, adolescent or pediatric 1 completed Sharri Ste[place] - [facility] 08/22/2023 15:36:26 Hep A, adult 8 completed Sharri Stears null[place] - [facility] 08/22/2023 15:36:26 Past Encounters Encounter ID Performer Location Encounter Start Date Encounter Closed Date Diagnosis/Indication Diagnosis SNOMED-CT Code Diagnosis ICD10 Code Diagnosis Note [id number] [facility] [address] [place] [address] 06/01/2008 00:00:00 [id number] [facility] [address] [place] [address] 08/11/2007 00:00:00 [id number] [facility] [address] [place] [address] 08/25/2007 00:00:00 [id number] [facility] [address] [place] [address] 01/31/2009 00:00:00 [id number] [facility] [address] [place] [address] 05/02/2009 00:00:00 [id number] [facility] [address] [place] [address] 06/13/2009 00:00:00 [id number] [facility] [address] [place] [address] 06/27/2009 00:00:00 [id number] [facility] [address] [place] [address] 04/01/2014 00:00:00 [id number] [facility] [address] [place] [address] 05/13/2014 00:00:00 [id number] [facility] [address] [place] [address] 04/09/2010 00:00:00 [id number] [facility] [address] [place] [address] [address] 06/14/2014 00:00:00 [id number] [facility] [address] [address] 04/24/2010 00:00:00 [id number] [facility] [address] [place] [address] [address] 06/07/2015 00:00:00 [id number] [facility] [address] [place] [address] 02/01/2014 00:00:00 [id number] [facility] [address] [place] [address] 02/21/2014 00:00:00 [id number] [facility] [address] [place] [address] [address] 04/01/2014 00:00:00 [id number] ANDRAE Sprague SENIOR PROJECT LEADER/TEAM LEAD [address] [facility] [place] [address] 01/06/2018 12:53:10 01/06/2018 13:56:14 Routine gynecologic examination done 4037079880 9101 Z01.419 Examinatio n of blood pressure 554655524 Z01.30 BP goal < 140/90 Depression screening 171 218139 Z13.89 Diet education 65822950 Z71.3 7998-5968 calorie diet recommende d with emphasis on low saturated fat, low carbohydra te, and adequate protein intake. She declines dietary consult. Counseling 120103485 Z71 .9 Exercise counsellin elaine. Patient encouraged to exercise 30 minutes 5 days a week. Vaccine de clined by patient 4448277855 02 Z28.21 Screening for malignant neoplasm of cervix 345587747 Z12.4 Z11.51 Z11.8 History of loop electrosurgical excision procedure 3189662486 9102 Z98.890 Viral hepatitis C 535260 07 B19.20 Hypothyroidism 90211606 E03.9 was previously on Synthroid 75 mcg daily but has been off for several years. History of tubal ligation 732581037 Z98.51 Body mass index 30+ - obesity 520611588 Z68.33 Dyspareunia 79499654 N94 .10 [id number] Agustin Heck APRN [address] [place] [address] 01/19/2018 09:51:56 01/19/2018 10:40:46 Hypothyroidism 08189403 E03.9 Viral hepatitis C 937543 07 B19.20 History of heroin abuse 7382340793 81930 F11.10 Psoriasis 0378161 L40.9 [id number] Florencio Heck MD [address] [place] [address] 03/24/2018 15:32:50 03/24/2018 16:10:01 Headache 74193750 R51 Generalized headache 162 207908 R51 Migraine 73261144 G43.90 9 Hypothyroidism 66868969 E03.9 [id number] Makayla White MD [address] [place] [address] 04/02/2018 14:34:42 04/02/2018 15:42:41 Migraine 48215142 G43.492 [id number] Tuyet Ramos APRN [address] [address] 08/22/2023 15:25:54 08/22/2023 16:02:32 Cellulitis of lower limb 643684445 L03.119 Pain of le ft shoulder joint 1404367617 4285935 M25.512 Health Concerns Section Related Observation LastModified by Organization Detai ls LastModified Time None Recorded Concern Status LastModified by Organization Details LastModified Time None Recorded Advance Directives Directive N: Payers Insurance Date Sequence Insurance Name Policy Number Policy Wolfe Covered Member ID Wolfe Member ID Guarantor Name 08/27/2024 MEDICAID-[facility] WRAP [facility]ILLING (MEDICAID) Sandra Guthrie [id number] Sandra Guthrie 08/27/2024 1 [employer] [facility] (MEDICAID HMO) Sandra Guthrie [id number] Sandra Guthrie Notes Date Note Type Note Provider Name and Address Organization Details Recorded Time 01/06/2018 text/html Annual - MOBRepo rted bypatient.History:Last annual exam: 2013; no gynecologic complaints Current Contraception:Satisfie d with current contraception; Tubal ligation Preventive measures:Encourage self breast examination; Encourage regular exercise; Encourage no tobacco use; Encourage regular mammograms starting age 40; Followed with yearly pap smears;History of abnormal pap smear/cervical dysplasia The patient is a 32 year old reproductive age White female who presents as a/an established patient for annual gynecologic wellness exam. She denies gynecologic concerns. See above notations for significant gynecologic history of present illness as reported per patient during visit intake. 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 and was just recently diagnosed with hep c States she takes suboxone but not prescribed to her Velez Umang brown, [place] - [facility] 01/19/2018 11:36:21 03/24/2018 text/html HeadacheReported bypatient.Location:bettye ateral; occipital; frontal Quality:similar to previous headaches;throbbing;ti ghtness;dull Severity:severe Duration:intermittent Onset/Timing:still present; occur daily Context:not related to trauma Aggravating factors:loud noise; bright lights Alleviating factors:laying in a dark room Associated Symptoms:no confusion; no slurred speech; no preceeding aura; no double vision; normal feeling/sensation; no motor paralysis; no dizziness; no sleep disturbances; no nosebleeds; no hoarseness; no sore throat; no hearing loss;nausea;vomiting;p hotophobia;tearing/dutch mayuri eyes Sandra is a 32 yo female who complains of headaches x 1.5 weeks. She has been taking ibu otc daily. She is concerned of shooting sharp pain behind the right ear.She was called in January with lab results, she was ask to schedule to come in for a followup on TSH labs. Florencio Heck [place], [place] - [facility] 03/24/2018 16:02:49 04/02/2018 text/html has been 2.5-3 w eeks. always there but can get better and worse. she has had SORIANO's in the past. head trauma 2009. bad SORIANO's since. will give her n/v and dizziness she is not bad in the morning, but can get worse through the day. gets worse watching TV or talking on her phone. will get dizzy if she turns her head fast pressure on top of head. nausea and dizzy when it is severe. will see floating things at times. no other hearing or vision change. she feels better in a dark and quiet room. taking ibu 4 tabs up to 2-3 times a day. no help with imitrex Makayla White MD [address], [place], [address], [facility] - [facility] 04/02/2018 20:55:01 08/22/2023 text/html Sandra is a 38 y ear old female who presents to the office today with concerns ofcellulitis on right lower leg-- was on cephalexin bid a few months ago and did not finish medication. Tuyet Ramos APRN [address], [place], [address], [facility] - [facility] 08/26/2023 11:48:09 OBGyn Episode No OBEpisode recorded.
--- OUTSIDE RECORDS SUMMARY | 2025-03-08 11:06 | XMS_ITS | Clinical Summary ---
Author Organization [facility] Address [address] [place] [address] Care Team Providers Care Pre Planning Advisor Name Role Phone Unavailable Primary Care Provider Unavailabl e Active Problems Problem Noted Date Diagnosed Date Borderline personality disorder 09/17/2011 Opiate dependence 09/17/2011 Social History Tobacco Use Types Packs/Day Years Used Date Smoking Tobacco: Never Assessed Comments Unknown Sex and Gender Information Value Date Recorded Sex Assigned at Not on file Legal Sex Female 10:00 PM EST Gender Identity Not on file Sexual Orientation Not on file Plan of Treatment Not on file
--- OUTSIDE RECORDS SUMMARY | 2025-03-08 11:06 | XMS_ITS | Clinical Summary ---
Author Organization Healthcare Address [address] [place] [address] Care Team Providers Care Liturgical Music Director Name Role Phone Richard Yeboah MD Primary Care Provider [phone] Family History Medical History Relation Name Comments Depression Father Hypertension Father Alcohol abuse Father's Brother 1 Conversions - Other Father's Brother 2 Dr ug-Induced Disorder Alcohol abuse Father's Sister 1 Conversions - Other Father's Sister 2 Mark g-Induced Disorder Heart disease Maternal Grandfather Hypertension Maternal Grandfather Cancer Maternal Grandmother Heart disease Maternal Grandmother Hypertension Maternal Grandmother Depression Mother Alcohol abuse Mother's Brother 1 Cancer Mother's Brother 2 Depression Mother's Brother 3 Conversions - Other Mother's Brother 4 Dr ug-Induced Disorder Alcohol abuse Mother's Sister 1 Cancer Mother's Sister 2 Depression Mother's Sister 3 Conversions - Other Mother's Sister 4 Mark g-Induced Disorder Relation Name Status Comments Father Father's Brother 1 Father's Brother 2 Father's Sister 1 Father's Sister 2 Maternal Grandfather Maternal Grandmother Mother Mother's Brother 1 Mother's Brother 2 Mother's Brother 3 Mother's Brother 4 Mother's Sister 1 Mother's Sister 2 Mother's Sister 3 Mother's Sister 4 Social History Tobacco Use Types Packs/Day Years Used Date Smoking Tobacco: Every Day Alcohol Use Standard Drinks/Week Comments Not Currently 0 (1 standard drink = 0.6 oz pure alcohol) Alcoholic Drinks/day: Stopped Drinking Alcohol Comments Unknown Sex and Gender Information Value Date Recorded Sex Assigned at Not on file Legal Sex Female 8:48 PM EDT Gender Identity Not on file Sexual Orientation Not on file Last Filed Vital Signs Vital Sign Reading Time Taken Comments Blood Pressure - - Pulse - - Temperature - - Respiratory Rate - - Oxygen Saturation - - Inhaled Oxygen Concentration - - Weight 93 kg (205 lb 0.1 oz) 11/11/2012 9:55 AM EST Height 167.6 cm (5' 6 ) 11/11/2012 9:55 AM EST Body Mass Index 33.09 11/11/2012 9:55 AM EST Plan of Treatment Not on file Care Teams Liturgical Music Director Relationship Specialty Start Date End Date Richard Yeboah MD [address] [place] [address] PCP - General 01/19/21
--- NOTE | 2025-03-08 11:08 | ED_ITS ---
<Statement entered by Maria Armijo MD - 03/09/25 21:34> I was consulted by the [facility], and we discussed the complexity of the problems being addressed. I approved the treatment and management plan for this patient's care in the emergency department, thus performing a substantive portion of the medical decision making. Maria Armijo MD, [place], FACEP Discharge Plan Disposition Patient Disposition: Home, Self-Care Condition: Good Prescriptions Prescriptions: New clindamycin HCl [Cleocin HCl] 300 mg capsule 300 mg PO Q12H 7 Days Qty: 14 0RF No Action levothyroxine 150 mcg capsule 150 mcg PO DAILY buprenorphine-naloxone 8-2 mg tablet, sublingual 2 tab sublingual DAILY phentermine [Adipex-P] 37.5 mg tablet 37.5 mg PO DAILY Qty: 30 0RF Rx Instructions: must administer 30 minutes before or 1-2 hours after breakfast ibuprofen [IBU] 800 mg tablet 800 mg PO Q8HP PRN (Reason: Moderate Pain) Qty: 30 0RF Referrals Follow up/Referrals: Amalia Stratton APRN [Primary Care Provider, Medical] - See instructions Activity Restrictions/Add. Instructions Additional Instructions/Restrictions: Pack antibiotics as directed. If this does not improve please return to ED or call PCP. Clinical Impressions Clinical Impression: Cellulitis Qualifiers: Site of cellulitis: extremity Site of cellulitis of extremity: lower extremity Laterality: right Qualified Code(s): L03.115 - Cellulitis of right lower limb Instructions Patient Instructions: Cellulitis Print Language Print Language: Yi Discharge ED Provider: Maria Armijo General Adult HPI General Chief complaint: PAIN Stated complaint: Possible Blood Clot in L leg Time Seen by Provider: 03/08/25 11:05 History of Present Illness HPI narrative: 39-year-old female presents to the ED today for complaint of left calf pain for 2 days. She has circled the area that has been hurting. She says that yesterday she cannot touch the area without it being very painful. Today it has improved but she is still concerned. The left leg does have edema. She does have a history of edema in bilateral lower extremities, today the left is worse than right. No chest pain or shortness of breath. She does have history of cellulitis in her lower extremities. No other symptoms no nausea, vomiting or diarrhea. No fevers or chills. No injury to her left leg. She says she has been sitting around more than usual. Related Data Home Medications ?Medication ?Instructions ?Recorded ?Confirmed buprenorphine 8 mg-naloxone 2 mg 2 tab sublingual ASHLEY Y addiction 03/21/21 06/16/24 sublingual tablet levothyroxine 150 mcg capsule 150 mcg PO DAILY thyroid 03/21/21 06/16/24 Previous Rx's ?Medication ?Instructions ?Recorded phentermine 37.5 mg tablet 37.5 mg PO DAILY #30 tabs 1 11/05/20 (Adipex-P) ibuprofen 800 mg tablet (IBU) 800 mg PO Q8HP PRN Moder ate Pain 05/30/24 #30 tabs clindamycin HCl 300 mg capsule 300 mg PO Q12H 7 days # 14 caps 03/08/25 (Cleocin HCl) Allergies Allergy/AdvReac Type Severity Reaction Status Date / Time No Known Allergies Allergy Verified 07/01/24 15:24 [facility] Disclaimer: The information contained in this section may have been updated after the patient was seen, as this information can be updated by other users. Medical History Hypothyroidism Tobacco dependence syndrome Hepatitis C Edema Palpitations Social History Smoking Status: Current every day smoker tobacco type: cigarettes packs per day: 1 second hand exposure: Yes alcohol intake: never substance use type: former substance user and heroin current occupational status: unemployed Travel in the last 8 weeks?: None household members: family housing: house Have you lived/traveled outside US in past 30 days?: No Contact w/someone who lives/traveled outside US past 30 days?: No Exposure to someone with infectious disease in past 14 days?: No Do you have a fever (greater than 100.4 F or 38 C)?: No Have you tested positive for COVID-19?: No Exposed to someone with COVID-19 in past 14 days?: No Do you have a sore throat?: No Do you have a cough?: No Do you have any weakness?: No Do you have any diarrhea?: No Are you experiencing any unusual bleeding?: No Do you have any muscle aches/pain?: No Do you have any abdominal pain?: No Are you experiencing loss of taste or smell?: No Other Medical History Have you received the Pneumonia Vaccine: No ROS Obtained: Yes Systems reviewed as appropriate & no additional complaints except as documented Constitutional Constitutional: Reports as per HPI Physical Exam General General appearance: alert and in no apparent distress Head Head exam: normocephalic Eye Eye exam: Present PERRL and EOMI ENT ENT exam: Present normal oropharynx and mucous membranes moist Neck Neck exam: Present full ROM and trachea midline Respiratory Respiratory exam: Present normal lung sounds bilaterally Cardiovascular Cardiovascular exam: Present regular rate, normal rhythm, normal heart sounds, +S1 and +S2 Extremities Exam Extremities exam: Present full ROM, edema and calf tenderness (Left calf tenderness) Neurological Exam Neurological exam: Present alert, oriented X3 and normal gait Skin Skin exam: Present warm, dry, intact and erythema (Mild erythema to left medial calf) Medical Decision Making Medical Records Screening: Per USPSTF and CDC recommendations, given the prevalence of disease in our region, it is our hospital?s policy to screen for HIV and viral Hepatitis for all patients aged 18 and over and those with ongoing risk factors. Nash Inquiry Pt receiving controlled substance: No Nash was queried for this patient: No Vital Signs: 03/08/25 11:02 03/08/25 11:05 03/08/25 13:48 Temperature 98.4 F 98.7 F Temperature Source Oral Pulse Rate 82 89 Pulse Rate [Left] 82 Respiratory Rate 19 19 19 Blood Pressure 152/88 H 124/79 Blood Pressure [Right Arm] 151/88 H Blood Pressure Mean 95 Blood Pressure Mean [Right Arm] 109 Blood Pressure Source [Right Arm] Automatic Cuff 02 Sat by Pulse Oximetry 97 Oxygen Delivery Method Room Air Room Air Lab Data Lab Results 03/08/25 11:20: WBC 6.1, RBC 5.01, Hgb 15.0, Hct 43.3, MCV 86.4, MCH 29.9, MCHC 34.6, RDW 13.4, Plt Count 210, MPV 10.7 H, Neut % (Auto) 46.1, Lymph % (Auto) 46.4, Brooks % (Auto) 5.4, Eos % (Auto) 1.6, Baso % (Auto) 0.3, Neut # (Auto) 2.8, Lymph # (Auto) 2.9, Brooks # (Auto) 0.3, Eos # (Auto) 0.1, Baso # (Auto) 0.0, Sodium 136, Potassium 4.5, Chloride 99, Carbon Dioxide 27, Anion Gap 14.5, BUN 10, Creatinine 0.80, Estimated Creat Clear 174, Estimated GFR 80, Est GFR ( Amer) 97, Glucose 88, Calcium 9.7, Magnesium 1.9, Total Bilirubin 0.7, AST 27, ALT 13, Alkaline Phosphatase 69, Total Protein 9.8 H D, Albumin 4.9, G lobulin 4.9 H, Albumin/Globulin Ratio 1.0 L 03/08/25 11:20 03/08/25 11:20 Orders (Tests/Meds): ED MEDICATIONS Discontinued Medications Generic Name Dose Route Start Last Admin Trade Name Freq PRN Reason Stop Dose Admin Morphine Sulfate 2 mg 03/08/25 13:42 Morphine 2mg/Ml Syringe IV 03/08/25 13:43 ONCE ONE ORDERS Category Date Time Status Knee XR left 3 views [XR knee LT 3V] Stat Exams 03/08/25 12:00 Completed CBC w/Auto Diff [Complete Blood Count Auto Diff] Stat Lab 03/08/25 11:20 Completed Comprehensive Metabolic Panel Stat Lab 03/08/25 11:20 Completed Magnesium Stat Lab 03/08/25 11:20 Completed CA venous doppler LE LT Stat Y 03/08/25 11:05 Completed Medical Decision Narrative: patient is a 39-year-old female presenting to the emergency department for evaluation of erythema and pain in medial left calf for 2 days. Patient is hemodynamically stable and nontoxic-appearing upon arrival, afebrile. Differential diagnosis includes cellulitis, DVT, among others. Workup will be conducted with hematologic labs, specific imaging including venous Doppler and left knee x-ray. Imaging informally interpreted by me and remarkable for nothing acute. Please see radiology report for formal imaging. Patient will follow-up with PCP if not improved with antibiotic. If cellulitis does not improve she will call PCPs office. Patient is safe for discharge home. Patient discussed with Dr. Armijo. Critical Care Critical Care Time Critical Care Time: No
[2025-03-08 11:36] LABS: Hematocrit 43.3 % (37.0-47.0); Hemoglobin 15.0 g/dL (12.2-16.2); Immature Granulocytes % 0.2 %; Mean Corpuscular HGB Conc 34.6 g/dL (31.8-35.4); Mean Corpuscular Hemoglobin 29.9 pg (27.0-31.2); Mean Corpuscular Volume 86.4 fl (81-99); Nucleated Red Blood Cells % 0 %; Platelet Count 210 K/mm3 (142-424); Red Blood Count 5.01 M/mm3 (4.20-5.40); Red Cell Distribution Width-SD 42.5 fL; White Blood Count 6.1 K/mm3 (4.8-10.8)
--- NOTE | 2025-03-08 11:38 | PC.NURSE ---
Unable to obtain blue top for D Dimer, multiple nurses attempted to obtain IV were unsuccessful. Provider Purnima notified, states to Hold on any further sticks at this time. Ultrasound of the LLE in progress now.
--- NOTE | 2025-03-08 12:00 | XR_ITS ---
FINAL REPORT CLINICAL HISTORY: pain COMPARISON: None FINDINGS: LEFT KNEE 3 views of the left knee were obtained. There is no acute fracture or dislocation. There is a sclerotic focus at the posterior aspect of the proximal left tibial diaphysis measuring 2.1 cm, probable site of involuted fibrous cortical defect. Visualized joint spaces are normally aligned. Soft tissues are unremarkable. IMPRESSION: No acute bony abnormality. Reviewed, Interpreted and Dictated by Eliezer Post MD Transcribed by Lissa Bradley Authenticated and [facility]
[2025-03-08 12:18] LABS: Alanine Aminotransferase 13 U/L (12-78); Albumin Level 4.9 g/dl (3.5-5.0); Albumin/Globulin Ratio 1.0 (1.1-1.8); Alkaline Phosphatase 69 U/L (38-126); Anion Gap 14.5 mEq/L (5-15); Aspartate Amino Transferase 27 U/L (14-36); Bilirubin,Total 0.7 mg/dl (0.2-1.3); Blood Urea Nitrogen 10 mg/dl (7-17); Calcium 9.7 mg/dl (8.4-10.2); Carbon Dioxide 27 mmol/L (22.0-30.0); Chloride 99 mmol/L (98-107); Creatinine Clearance Estimated 174 mL/min (50-200); Creatinine,Serum 0.80 mg/dl (0.52-1.04); Estimated Glomerular Filt Rate 80 ml/min (>60); GFR (African American) 97 ML/MIN (>60); Globulin 4.9 g/dL (1.3-3.2); Glucose 88 mg/dl (74-100); Magnesium 1.9 mg/dl (1.6-2.3); Potassium 4.5 mmoL/L (3.5-5.1); Sodium 136 mmol/L (136-145); Total Protein,Serum 9.8 g/dl (6.3-8.2)
[2025-03-08 13:48] VITALS: BP 124/79; PULSE 89; RESP 19; TEMP 37.1; O2SAT 98
== END 2025-03-08 13:49 | disposition home or self-care (01) ==
PROVIDERS: Nurse Practitioner; Emergency Provider Student in an Organized Health Care Education/Training Program; PCP Nurse Practitioner Family
DX: L03.116 Cellulitis of left lower limb (principal); M79.662 Pain in left lower leg; F17.210 Nicotine dependence, cigarettes, uncomplicated
CPT/HCPCS: 73562; 80053; 83735; 85025; 93971; 99284

== ENCOUNTER 2025-06-06 11:14 | Emergency (ER) | payer OTHER, SELFPAY ==
--- NOTE | 2025-06-06 11:32 | HMH.EDGENADL ---
Discharge Plan Prescriptions Prescriptions: No Action levothyroxine 150 mcg capsule 150 mcg PO DAILY buprenorphine-naloxone 8-2 mg tablet, sublingual 2 tab sublingual DAILY phentermine [Adipex-P] 37.5 mg tablet 37.5 mg PO DAILY Qty: 30 0RF Rx Instructions: must administer 30 minutes before or 1-2 hours after breakfast ibuprofen [IBU] 800 mg tablet 800 mg PO Q8HP PRN (Reason: Moderate Pain) Qty: 30 0RF clindamycin HCl [Cleocin HCl] 300 mg capsule 300 mg PO Q12H 7 Days Qty: 14 0RF Referrals Follow up/Referrals: Amalia Startton APRN [Primary Care Provider, Medical] - See instructions Print Language Print Language: Maltese Discharge ED Provider: Sandra Leyva Adult HPI General Stated complaint: High BP 190/120 Time Seen by Provider: 06/06/25 11:29 Related Data Home Medications ?Medication ?Instructions ?Recorded ?Confirmed buprenorphine 8 mg-naloxone 2 mg 2 tab sublingual DAILY addiction 03/21/21 06/16/24 sublingual tablet levothyroxine 150 mcg capsule 150 mcg PO DAILY thyroid 03/21/21 06/16/24 Previous Rx's ?Medication ?Instructions ?Recorded phentermine 37.5 mg tablet 37.5 mg PO DAILY #30 tabs 09/04/21 (Adipex-P) ibuprofen 800 mg tablet (IBU) 800 mg PO Q8HP PRN Moderate Pain 05/30/24 #30 tabs clindamycin HCl 300 mg capsule 300 mg PO Q12H 7 days #14 caps 03/08/25 (Cleocin HCl) Allergies Allergy/AdvReac Type Severity Reaction Status Date / Time No Known Allergies Allergy Verified 07/01/24 15:24 [facility] Disclaimer: The information contained in this section may have been updated after the patient was seen, as this information can be updated by other users. Medical History Hypothyroidism Tobacco dependence syndrome Hepatitis C Edema Palpitations Social History Smoking Status: Current every day smoker tobacco type: cigarettes packs per day: 1 second hand exposure: Yes alcohol intake: never substance use type: former substance user and heroin current occupational status: unemployed Travel in the last 8 weeks?: None household members: family housing: house Have you lived/traveled outside US in past 30 days?: No Contact w/someone who lives/traveled outside US past 30 days?: No Exposure to someone with infectious disease in past 14 days?: No Do you have a fever (greater than 100.4 F or 38 C)?: No Have you tested positive for COVID-19?: No Exposed to someone with COVID-19 in past 14 days?: No Do you have a sore throat?: No Do you have a cough?: No Do you have any weakness?: No Do you have any diarrhea?: No Are you experiencing any unusual bleeding?: No Do you have any muscle aches/pain?: No Do you have any abdominal pain?: No Are you experiencing loss of taste or smell?: No Other Medical History Have you received the Pneumonia Vaccine: No Medical Decision Making Medical Records Screening: Per USPSTF and CDC recommendations, given the prevalence of disease in our region, it is our hospital?s policy to screen for HIV and viral Hepatitis for all patients aged 18 and over and those with ongoing risk factors.
--- OUTSIDE RECORDS SUMMARY | 2025-06-06 11:32 | XMS_ITS | Clinical Summary ---
Author Organization [facility] Address [address] [place] [address], [address] [place] [address] Care Team Providers Care Mediator Name Role Phone Unavailable Primary Care Provider [...]
--- OUTSIDE RECORDS SUMMARY | 2025-06-06 11:32 | XMS_ITS | Clinical Summary ---
Author Organization Healthcare Address [address] [place] [place] [address] Care Team Providers Care Retail Visual Merchandiser Name Role Phone Richard Yeboah MD Primary Care Provider Family History Medical History Relation Name Comments [...] of Treatment Not on file Care Teams Retail Visual Merchandiser Relationship Specialty Start Date End Date Richard Yeboah MD [address] [place] [address] PCP - General 01/19/21
[2025-06-06 11:36] VITALS: BP 142/94; PULSE 83; RESP 17; TEMP 37; O2SAT 100; BMI 40.3
--- NOTE | 2025-06-06 11:36 | XR_ITS ---
FINAL REPORT CLINICAL HISTORY: Shortness of breath COMPARISON: None FINDINGS: CHEST 1 VIEW The heart size is normal. The mediastinum is normal. There is no focal infiltrate or edema. There are no pleural effusions. There is no pneumothorax. There is no osseous abnormality. IMPRESSION: No acute cardiopulmonary process Reviewed, Interpreted and Dictated by Eliezer Post MD Transcribed by Polly Espinoza Authenticated and [facility]
--- NOTE | 2025-06-06 11:36 | HMH.EDCP ---
Discharge Plan Disposition Patient Disposition: Home, Self-Care Condition: Good Prescriptions Prescriptions: No Action levothyroxine 150 mcg capsule 150 mcg PO DAILY buprenorphine-naloxone 8-2 mg tablet, sublingual 2 tab sublingual DAILY phentermine [Adipex-P] 37.5 mg tablet 37.5 mg PO DAILY Qty: 30 0RF Rx Instructions: must administer 30 minutes before or 1-2 hours after breakfast ibuprofen [IBU] 800 mg tablet 800 mg PO Q8HP PRN (Reason: Moderate Pain) Qty: 30 0RF clindamycin HCl [Cleocin HCl] 300 mg capsule 300 mg PO Q12H 7 Days Qty: 14 0RF Referrals Follow up/Referrals: Amalia Stratton APRN [Primary Care Provider, Medical] - See instructions Activity Restrictions/Add. Instructions Additional Instructions/Restrictions: You have been seen and evaluated in the emergency department. I recommend that you keep a home blood pressure log. Please try to decrease tobacco use as much as possible. Return to the ED with worsening symptoms. Clinical Impressions Clinical Impression: HBP (high blood pressure) Instructions Patient Instructions: DI for High Blood Pressure Print Language Print Language: Tajik Discharge ED Provider: Sandra Leyva General Chief Complaint: Dizziness Stated Complaint: High BP 190/120 Time Seen by Provider: 06/06/25 11:29 History of Present Illness HPI narrative: 39-year-old female with past medical history of daily smoking and hypothyroidism who presents emergency department after an isolated episode of hypertension with associated shortness of breath and dizziness. She states she was feeling unwell at work today, she went to the nurses office where they checked her blood pressure. Blood pressure was reportedly 190/110. She does not have a history of hypertension. She follows with a local primary care doctor for management of her hypothyroidism. She states she has not had her levels checked in some time. She also reports increasing shortness of breath over the past few weeks. No recent fever, cough, nasal congestion, sore throat, or chest pain. No abdominal pain. No exogenous hormone supplementation. Related Data Home Medications ?Medication ?Instructions ?Recorded ?Confirmed buprenorphine 8 mg-naloxone 2 mg 2 tab sublingual DAILY addiction 03/21/21 06/16/24 sublingual tablet levothyroxine 150 mcg capsule 150 mcg PO DAILY thyroid 03/21/21 06/16/24 Previous Rx's ?Medication ?Instructions ?Recorded phentermine 37.5 mg tablet 37.5 mg PO DAILY #30 tabs 09/04/21 (Adipex-P) ibuprofen 800 mg tablet (IBU) 800 mg PO Q8HP PRN Moderate Pain 05/30/24 #30 tabs clindamycin HCl 300 mg capsule 300 mg PO Q12H 7 days #14 caps 03/08/25 (Cleocin HCl) Allergies Allergy/AdvReac Type Severity Reaction Status Date / Time No Known Allergies Allergy Verified 07/01/24 15:24 [facility] Disclaimer: The information contained in this section may have been updated after the patient was seen, as this information can be updated by other users. Medical History Hypothyroidism Tobacco dependence syndrome Hepatitis C Edema Palpitations Social History Smoking Status: Current every day smoker tobacco type: cigarettes packs per day: 1 second hand exposure: Yes alcohol intake: never substance use type: former substance user and heroin current occupational status: unemployed Travel in the last 8 weeks?: None household members: family housing: house Have you lived/traveled outside US in past 30 days?: No Contact w/someone who lives/traveled outside US past 30 days?: No Exposure to someone with infectious disease in past 14 days?: No Do you have a fever (greater than 100.4 F or 38 C)?: No Have you tested positive for COVID-19?: No Exposed to someone with COVID-19 in past 14 days?: No Do you have a sore throat?: No Do you have a cough?: No Do you have any weakness?: No Do you have any diarrhea?: No Are you experiencing any unusual bleeding?: No Do you have any muscle aches/pain?: No Do you have any abdominal pain?: No Are you experiencing loss of taste or smell?: No Other Medical History Have you received the Pneumonia Vaccine: No ROS Obtained: Yes All systems reviewed & no additional complaints except as documented Physical Exam General General appearance: alert and in no apparent distress Head Head exam: atraumatic and normocephalic Eye Eye exam: Present PERRL ENT ENT exam: Present mucous membranes moist Neck Neck exam: Present normal inspection Chest Chest inspection: Present symmetric chest wall rise; Absent tenderness Respiratory Respiratory exam: Present normal lung sounds bilaterally; Absent respiratory distress, wheezes or accessory muscle use Cardiovascular Cardiovascular exam: Present regular rate and normal rhythm Abdominal Exam Abdominal exam: Present soft; Absent distention or tenderness Extremities Exam Extremities exam: Present normal inspection; Absent tenderness Neurological Exam Neurological exam: Present alert and oriented X3 Psychiatric Psychiatric exam: Present normal affect Skin Skin exam: Present warm and dry HEART Score HEART Score HEART Score assessment performed?: Yes HEART Score: 2 Critical Care Critical Care Time Critical Care Time: No Medical Decision Making Nash Inquiry Pt receiving controlled substance: No Vital Signs Vital Signs: 06/06/25 11:36 06/06/25 12:40 06/06/25 13:23 Temperature 98.6 F 98.1 F Temperature Source Oral Oral Pulse Rate 67 61 Pulse Rate [Left Radial] 83 Respiratory Rate 17 15 17 Blood Pressure 129/77 137/86 Blood Pressure [Right Arm] 142/94 H Blood Pressure Mean [Right Arm] 110 Blood Pressure Source Automatic Cuff Automatic Cuff Blood Pressure Source [Right Arm] Automatic Cuff Blood Pressure Position Supine Sitting Blood Pressure Position [Right Arm] Sitting 02 Sat by Pulse Oximetry 100 98 Oxygen Delivery Method Room Air Room Air Room Air Lab Data Lab results reviewed: Yes I reviewed the patient's lab results. Labs: Lab Results 06/06/25 12:00: WBC 5.2, RBC 4.88, Hgb 14.3, Hct 42.6, MCV 87.3, MCH 29.3, MCHC 33.6, RDW 12.9, Plt Count 203, MPV 9.5, Neut % (Auto) 46.1, Lymph % (Auto) 44.6, Kleberg % (Auto) 6.4, Eos % (Auto) 2.1, Baso % (Auto) 0.4, Neut # (Auto) 2.4, Lymph # (Auto) 2.3, Kleberg # (Auto) 0.3, Eos # (Auto) 0.1, Baso # (Auto) 0.0, D-Dimer 0.80 H, Sodium 140, Potassium 3.9, Chloride 102, Carbon Dioxide 28, Anion Gap 13.9, BUN 10, Creatinine 0.80, Estimated Creat Clear 171, Estimated GFR 80, Est GFR ( Amer) 97, Glucose 84, Calcium 9.1, Total Bilirubin 0.4, AST 25, ALT 13, Alkaline Phosphatase 71, Troponin I < 0.01, Total Protein 8.3 H, Albumin 4.3, Globulin 4.0 H, Albumin/Globulin Ratio 1.1, TSH 15.00 H, Free T4 0.80, Serum HCG, Qual Negative 06/06/25 12:00 06/06/25 12:00 Response Orders (Tests/Meds): ORDERS Category Date Time Status Chest XR -- portable [XR chest portable] Stat Exams 06/06/25 11:36 Completed CBC w/Auto Diff [Complete Blood Count Auto Diff] Stat Lab 06/06/25 12:00 Completed CMP [Comprehensive Metabolic Panel] Stat Lab 06/06/25 12:00 Completed D-Dimer Stat Lab 06/06/25 12:00 Completed Free T4 (Free Thyroxine) Stat Lab 06/06/25 12:00 Completed Serum Beta HCG [HCG Qualitative, Serum] Stat Lab 06/06/25 12:00 Completed TSH [Thyroid Stimulating Hormone] Stat Lab 06/06/25 12:00 Completed Troponin I Q3H Lab 06/06/25 12:00 Completed MDM Narrative Medical Decision Narrative: 39-year-old female presenting the emergency department with isolated episode of likely presyncopal symptoms in conjunction with elevated blood pressure Differential diagnosis includes but is not limited to anxiety, vagal response, ACS, PE, pneumonia, reactive airway disease. EKG shows normal sinus rhythm at a rate of 69. Normal intervals. Normal axis. No acute ischemic changes. CBC shows no acute findings. D-dimer 0.80. Using the YEARS criteria, PE is unlikely. CMP with no acute findings. TSH is elevated at 15, however free T4 is within normal limits. Negative serum hCG. Chest x-ray with no acute findings on my read. I reviewed laboratory and imaging results with the patient. I explained that considering this episode was isolated and short-lived, it is likely benign. I recommend she follow-up with her PCP regarding home blood pressure managements, as she may need to be started on an antihypertensive eventually. I did provide tobacco cessation counseling.
--- NOTE | 2025-06-06 11:46 | ECG_ITS ---
APPROVED REPORT Exam: Resting ECG HR:69 bpm ECG Measurements Heart Rate 69 AXES WI 172 P 58 QRSd 109 QRS 67 QT 390 T 61 QTc 410 Conclusion SINUS RHYTHM NORMAL ECG UNCONFIRMED REPORT Electronically signed by : SHAN FULLER, 06/06/2025 23:01:31
[2025-06-06 12:10] LABS: Hematocrit 42.6 % (37.0-47.0); Hemoglobin 14.3 g/dL (12.2-16.2); Immature Granulocytes % 0.4 %; Mean Corpuscular HGB Conc 33.6 g/dL (31.8-35.4); Mean Corpuscular Hemoglobin 29.3 pg (27.0-31.2); Mean Corpuscular Volume 87.3 fl (81-99); Nucleated Red Blood Cells % 0 %; Platelet Count 203 K/mm3 (142-424); Red Blood Count 4.88 M/mm3 (4.20-5.40); Red Cell Distribution Width-SD 41.0 fL; White Blood Count 5.2 K/mm3 (4.8-10.8)
[2025-06-06 12:18] LABS: HCG Qualitative, Serum Negative (Negative)
--- NOTE | 2025-06-06 12:29 | PC.NURSE ---
XR AT BEDSIDE
[2025-06-06 12:31] LABS: Alanine Aminotransferase 13 U/L (12-78); Albumin Level 4.3 g/dl (3.5-5.0); Albumin/Globulin Ratio 1.1 (1.1-1.8); Alkaline Phosphatase 71 U/L (38-126); Anion Gap 13.9 mEq/L (5-15); Aspartate Amino Transferase 25 U/L (14-36); Bilirubin,Total 0.4 mg/dl (0.2-1.3); Blood Urea Nitrogen 10 mg/dl (7-17); Calcium 9.1 mg/dl (8.4-10.2); Carbon Dioxide 28 mmol/L (22.0-30.0); Chloride 102 mmol/L (98-107); Creatinine Clearance Estimated 171 mL/min (50-200); Creatinine,Serum 0.80 mg/dl (0.52-1.04); Estimated Glomerular Filt Rate 80 ml/min (>60); GFR (African American) 97 ML/MIN (>60); Globulin 4.0 g/dL (1.3-3.2); Glucose 84 mg/dl (74-100); Potassium 3.9 mmoL/L (3.5-5.1); Sodium 140 mmol/L (136-145); Total Protein,Serum 8.3 g/dl (6.3-8.2)
[2025-06-06 12:36] LABS: D-Dimer 0.80 ug/mL (0.0-0.5)
[2025-06-06 12:40] VITALS: BP 129/77; PULSE 67; RESP 15; O2SAT 98
[2025-06-06 12:45] LABS: Free T4 (Free Thyroxine) 0.80 ng/dl (0.78-2.19)
[2025-06-06 12:46] LABS: Troponin I < 0.01 ng/ml (0.00-0.034)
[2025-06-06 13:03] LABS: Thyroid Stimulating Hormone 15.00 uIU/mL (0.465-4.68)
[2025-06-06 13:23] VITALS: BP 137/86; PULSE 61; RESP 17; TEMP 36.7; O2SAT 98
== END 2025-06-06 13:35 | disposition home or self-care (01) ==
PROVIDERS: Emergency Provider Student in an Organized Health Care Education/Training Program; PCP Nurse Practitioner Family
DX: R06.02 Shortness of breath (principal); R42 Dizziness and giddiness; I10 Essential (primary) hypertension; F17.210 Nicotine dependence, cigarettes, uncomplicated
CPT/HCPCS: 71045; 80053; 84439; 84443; 84484; 84703; 85025; 85378; 93005; 99283; 99284